=== PATIENT | female | born 1970 | race Caucasian/White ===

== ENCOUNTER 2018-10-07 06:19 | Outpatient (CLI) | payer OTHER ==
[~2018-10-07] VITALS: Ht 170.2 cm; Wt 78.9 kg
[~2018-10-07 06:19] MED LIST: DOXY100C2 PO; ESCI20TA2 PO; METH4TAB PO
[2018-10-07] MEDS ORDERED: DULO30CA3 PO (13:20)
[2018-10-07] MEDS ORDERED: NF-ESOM40C PO (13:20)
== END 2018-10-07 13:21 | disposition home or self-care (01) ==
LOC: PREOP 06:19
PROVIDERS: ATTEND Surgery
DX: Z01.818 Encounter for other preprocedural examination (principal)

== ENCOUNTER 2018-10-14 06:55 | Day surgery (SDC) | payer OTHER ==
[~2018-10-14] VITALS: Ht 170.2 cm; Wt 78.9 kg
[~2018-10-14 06:55] MED LIST changes: +DULO30CA3 PO; +NF-ESOM40C PO
--- OUTSIDE RECORDS SUMMARY | 2018-10-14 06:58 | XMS REPORT ---
Author Author Migration, Doctor Organization [facility] Address Unknown Phone Unavailable Care Team Providers Care Sugar House Supervisor Name Role Phone Migration, Doctor Unavailable Unavailable PROBLEMS Type Condition ICD9-CM Code [id number] Code Onset Dates Condition Status SNOMED Code Problem Gastroesophageal reflux disease, esophagitis presence not specified K21.9 Active 535621774 Problem Dysthymia F34.1 Active 18852206 Problem Hypercholesteremia E78.00 Active 46217456 Problem Tobacco abuse Z72.0 Active 516014340 ALLERGIES No Information ENCOUNTERS Encounter Location Date Diagnosis [facility] [id number] [place] [address]50- 7475 Sep, Gastroesophageal reflux disease, esophagitis presence not specified K21.9 [facility] [address] [address]- [address] Jul, [place] [address] [address] Jul, Viral upper respiratory tract infection J06.9 ; Vaginal discharge N89.8 ; Gastroesophageal reflux disease, esophagitis presence not specified K21.9 and Dysthymia F34.1 [facility] [id number] [place] [address] 81163- 7461 Jun, Essential hypertension I10 ; Chronic diarrhea K52.9 and Gastroesophageal reflux disease, esophagitis presence not specified K21.9 [facility] [id number] [place] [address] -[address]69 Apr, Acute bacterial conjunctivitis of right eye H10.31 and Bronchitis J40 [facility] [id number] [place] [address] 60080- 0745 Sep, Essential hypertension I10 [facility] [address] 8[address]- 3024 Jul, [place] [address] [address]12- 8290 04 Jul, 2017 Encounter for well woman exam with routine gynecological exam Z01.419 ; Screen for STD (sexually transmitted disease) Z11.3 ; Screening breast examination Z12.31 ; Tobacco abuse Z72.0 ; Tobacco abuse counseling Z71.6 ; Essential hypertension I10 and Missed period N92.6 [place] [address] 96[address]- [address]227 May, [facility] [address] [address] -[address]77 May, Encounter for immunization Z23 [place] [address] 00789- 6426 15 Mar, 2017 Encounter to establish care with new doctor Z76.89 ; Essential hypertension I10 ; Tobacco abuse Z72.0 and Tobacco abuse counseling Z71.6 [place] [address] 42900- 9519 Mar, [place] [address] 14669- 3117 Feb, Localized edema R60.0 ; Tinea pedis of both feet B35.3 and Hypertension, benign I10 [facility] [address] 72408 -4780 Sep, Bronchitis J40 [place] [address] 53173- 1448 Apr, Encounter for immunization Z23 [place] [address] 36522- 7301 07 Mar, 2016 Frequent urination R35.0 ; Hot flashes R23.2 ; Cough R05 and Tobacco dependence F17.200 [facility] [id number] [place] [id number] Feb, Dental examination Z01.20 [place] [address] 75558- 2546 November, Plant allergic contact dermatitis L23.7 [facility] [address] [id number] [id number] Jul, Encounter for dental examination Z01.20 and Dental caries K02.9 [facility] [address] [id number] [id number] May, Dental examination Z01.20 [facility] [address] [id number] [id number] Mar, Dental examination V72.2 [facility] [address] [id number][place] [id number] November, Dental examination V72.2 [facility] [address] [id number], [place] [address]- 2546 Oct, [facility] [address] [id number], [place] [address] 88[address] Oct, [facility] [address] [id number], [place] [address]- 2546 Apr, [facility] [address] [id number], [place] [address] Apr, [facility] [address], [place] [address] 25[address] Jan, [facility] [address] [id number], [place] [address] 6716 Jan, [facility] [address] [facility] [id number], [place] [address] 25[address] Feb, [facility] [address] [id number], [place] [address] 2546 Oct, [facility] [address] [facility] [id number], [place] [address]- 2546 Sep, [facility] [address] [facility] [id number], [place] [address]- 2546 Sep, [facility] [place] [facility] [address] [id number] [place] [address]- 2581 Sep, [facility] [place] [facility] [address] [id number] [place] [address]- 6071 Aug, [facility] [place] [facility] [address] [id number] [place] [address] 2546 Jul, [facility] [place] [facility] [address] [id number] [place] [address]- 6928 Jun, [facility] [place] [facility] [address] [id number] [place] [address]- 3747 Jun, [facility] [place] [facility] [address] [id number] [place] [address] Apr, [facility] [place] [facility] [address] [id number] [place] [address]- 5295 Apr, [facility] [place] [facility] [address] [id number] [place] [address]- 8393 Jan, [facility] [place] [facility] [address] [id number] [place] [address]- 0281 Dec, [facility] [place] [facility] [address] [id number] [place] [address]- 4287 Dec, [facility] [place] [facility] [address] [id number] [place] [address]- 5525 Dec, [facility] [place] [facility] [address] [id number] [place] [address]- 7763 Dec, [facility] [place] [facility] [address] [id number] [place] [address]- 5159 Dec, [facility] [place] [facility] [address] [id number] [place] [address]- 3820 Dec, [facility] [place] [facility] [address] [id number] [place] [address]- 4256 Dec, [facility] [place] [facility] [address] [id number] [place] [address]- 0079 Dec, [facility] [address] [id number] [place] [address]- 8631 Dec, [facility] [place] [facility] [address] [id number] [place] [address]- 3761 November, [facility] [address] [id number] [place] [address]- 9235 November, [facility] [place] [facility] [address] [id number] [place] [address]- 7664 November, [facility] [address] [id number] [place] [address]- 8642 November, [facility] [address] [id number] [place] [address]- 9860 November, [facility] [address] [id number] [place] [address]- 9093 November, [facility] [place] [facility] [address] [id number] [place] [address]- 5706 November, [facility] [place] [facility] [address] [id number] [place] [address]- 3986 November, [facility] [place] [facility] [address] [id number] [place] [address]- 2869 November, [facility] [place] [facility] [address] [id number] [place] [address]- 7980 November, [facility] [place] [facility] [address] [id number] [place] [address]- 2970 November, [facility] [place] [facility] [address] [id number] [place] [address]- 6748 Sep, [facility] [place] [facility] [address] [id number] [place] [address]- 0801 Sep, [facility] [place] [facility] [address] [id number] [place] [address]- 5016 Sep, [facility] [place] [facility] [address], [place] [address]- 99[address] Sep, [facility] [address]65100[place], [place] [address]- 9935 Aug, [facility] [address]65100[place], [place] [address]- 5380 Aug, [facility] [address]65[address], [place] [address]- 0881 Aug, [facility] [address] [place] [address] 26172- 9952 Aug, [facility] [address] [place] [address] 04504- 0751 Aug, [facility] [address] [place] [address] 29331- 2322 Aug, [facility] [address] [place] [address] 62399- 2744 Aug, [facility] [address]65[address], [place] [address]- 0298 May, [facility] [address], [place] [address]- 5287 May, [facility] [id number], [place] [address]- 5486 May, IMMUNIZATIONS No Known Immunizations SOCIAL HISTORY Never Assessed REASON FOR VISIT [facility] [place] PLAN OF CARE VITAL SIGNS MEDICATIONS Unknown Medications RESULTS No Results PROCEDURES No Known procedures INSTRUCTIONS MEDICATIONS ADMINISTERED No Known Medications MEDICAL (GENERAL) HISTORY Type Description Date Medical History Incomplete spontaneous without mention of complication Medical History Mucous polyp of cervix Medical History anxiety Medical History depression Medical History borderline personality disorder Surgical History [place] teeth removed Surgical History section Hospitalization History Child
--- OUTSIDE RECORDS SUMMARY | 2018-10-14 06:58 | XMS REPORT ---
Author Author Migration, Doctor Organization [facility] Address Unknown Phone Unavailable Care Team Providers Care Ammonia Box Operator Name Role Phone Migration, Doctor Unavailable Unavailable PROBLEMS Type Condition ICD9-CM Code PCW36-FH Code Onset Dates Condition Status SNOMED Code Problem Gastroesophageal reflux disease, esophagitis presence not specified K21.9 Active 618535145 Problem Dysthymia F34.1 Active 60565656 Problem Hypercholesteremia E78.00 Active 46879754 Problem Tobacco abuse Z72.0 Active 443603886 ALLERGIES No Information ENCOUNTERS Encounter Location Date Diagnosis [facility] [id number] [place] [address] 45876- 2510 Sep, Gastroesophageal reflux disease, esophagitis presence not specified K21.9 [facility] [address] [address]- 6545 Jul, [place] [address] 71720- 6253 Jul, Viral upper respiratory tract infection J06.9 ; Vaginal discharge N89.8 ; Gastroesophageal reflux disease, esophagitis presence not specified K21.9 and Dysthymia F34.1 [facility] [id number] [place] [address] 89532- 1128 Jun, Essential hypertension I10 ; Chronic diarrhea K52.9 and Gastroesophageal reflux disease, esophagitis presence not specified K21.9 [facility] [id number] [place] [address]287 -5419 Apr, Acute bacterial conjunctivitis of right eye H10.31 and Bronchitis J40 [facility] [id number] [place] [address] 05547- 3217 Sep, Essential hypertension I10 [facility] [address] 46073- 5938 Jul, [place] [address] 15949- 9075 04 Jul, 2017 Encounter for well woman exam with routine gynecological exam Z01.419 ; Screen for STD (sexually transmitted disease) Z11.3 ; Screening breast examination Z12.31 ; Tobacco abuse Z72.0 ; Tobacco abuse counseling Z71.6 ; Essential hypertension I10 and Missed period N92.6 [place] [address] 42231- 8992 May, [facility] [address] 69543 -9817 May, Encounter for immunization Z23 [place] [address] 84009- 7135 15 Mar, 2017 Encounter to establish care with new doctor Z76.89 ; Essential hypertension I10 ; Tobacco abuse Z72.0 and Tobacco abuse counseling Z71.6 [place] [address] 29605- 7072 Mar, [place] [address] 69266- 5211 Feb, Localized edema R60.0 ; Tinea pedis of both feet B35.3 and Hypertension, benign I10 [facility] [address] 77910 -7278 Sep, Bronchitis J40 [place] [address] 50961- 2702 Apr, Encounter for immunization Z23 [place] [address] 23545- 5347 07 Mar, 2016 Frequent urination R35.0 ; Hot flashes R23.2 ; Cough R05 and Tobacco dependence F17.200 [facility] [id number] [place] [address] [id number] Feb, Dental examination Z01.20 [place] [address] 80238- 2546 November, Plant allergic contact dermatitis L23.7 [facility] [address] [id number][place] [address] Jul, Encounter for dental examination Z01.20 and Dental caries K02.9 [facility] [address] [id number][place] [id number] May, Dental examination Z01.20 [facility] [address] [id number][place] [address] Mar, Dental examination V72.2 [facility] [address] [id number][place] [id number] November, Dental examination V72.2 [facility] [address] [id number], [place] [address]- 2546 Oct, [facility] [address] [id number], [place] [address]- 9486 Oct, [facility] [address] [id number], [place] [address]- 2546 Apr, [facility] [address] [id number], [place] [address]- 7176 Apr, [facility] [address]65100[place], [place] [address]- 2546 Jan, [facility] [address] [id number], [place] [address]- 4736 Jan, [facility] [address] [facility] [id number], [place] [address]- 2546 Feb, [facility] [address] [id number], [place] [address] 2546 Oct, [facility] [address] [facility] [id number], [place] [address]- 2546 Sep, [facility] [address] [facility] [id number], [place] [address]- 2546 Sep, [facility] [place] [facility] [address] [id number] [place] [address]- 7639 Sep, [facility] [place] [facility] [address] [id number] [place] [address]- 1186 Aug, [facility] [place] [facility] [address] [id number] [place] [address] 2546 Jul, [facility] [place] [facility] [address] [id number] [place] [address]- 1670 Jun, [facility] [place] [facility] [address] [id number] [place] [address]- 2703 Jun, [facility] [place] [facility] [address] [id number] [place] [address] Apr, [facility] [place] [facility] [address] [id number] [place] [address]- 1015 Apr, [facility] [place] [facility] [address] [id number] [place] [address]- 5944 Jan, [facility] [place] [facility] [address] [id number] [place] [address]- 1704 Dec, [facility] [place] [facility] [address] [id number] [place] [address]- 3270 Dec, [facility] [place] [facility] [address] [id number] [place] [address]- 2314 Dec, [facility] [place] [facility] [address] [id number] [place] [address]- 5628 Dec, [facility] [place] [facility] [address] [id number] [place] [address]- 6608 Dec, [facility] [place] [facility] [address] [id number] [place] [address]- 9673 Dec, [facility] [place] [facility] [address] [id number] [place] [address]- 1476 Dec, [facility] [place] [facility] [address] [id number] [place] [address]- 6863 Dec, [facility] [address] [id number] [place] [address]- 0396 Dec, [facility] [place] [facility] [address] [id number] [place] [address]- 7754 November, [facility] [address] [id number] [place] [address]- 2678 November, [facility] [place] [facility] [address] [id number] [place] [address]- 4827 November, [facility] [address] [id number] [place] [address]- 6232 November, [facility] [address] [id number] [place] [address]- 0934 November, [facility] [address] [id number] [place] [address]- 9524 November, [facility] [place] [facility] [address] [id number] [place] [address]- 6843 November, [facility] [place] [facility] [address] [id number] [place] [address]- 7656 November, [facility] [place] [facility] [address] [id number] [place] [address]- 3582 November, [facility] [place] [facility] [address] [id number] [place] [address]- 6645 November, [facility] [place] [facility] [address] [id number] [place] [address]- 1758 November, [facility] [place] [facility] [address] [id number] [place] [address]- 8154 Sep, [facility] [place] [facility] [address] [id number] [place] [address]- 5863 Sep, [facility] [place] [facility] [address] [id number] [place] [address]- 2745 Sep, [facility] [place] [facility] [address] [id number], [place] [address]- 2479 Sep, [facility] [address], [place] [address]- 1408 Aug, [facility] [address] [address] [address] Aug, [facility] [address], [place] [address]- 6046 Aug, [facility] [address]65[address], [place] [address]- 3400 Aug, [facility] [address] 6722 Aug, [facility] [address], [place] [address]- 6711 Aug, [facility] [address], [place] [address]- 7008 Aug, [facility] [address], [place] [address]- 1551 May, [facility] [address], [place] [address]- 4336 May, [facility] [address], [place] [address]- 6762 May, IMMUNIZATIONS No Known Immunizations SOCIAL HISTORY Never Assessed REASON FOR VISIT [facility] [place] VITAL SIGNS MEDICATIONS Medication Instructions Dosage Frequency Start Date End Date Duration Status ZyrTEC 10 mg 1 tablet by Oral route 1 time per day Apr, Active Flonase 50 mcg/actuation 1 sprays by Nasal route 2 times per day in each nostril Apr, Active Zithromax 250 mg take 2 tablets (500 mg) by oral route once daily for 1 day then 1 tablet (250 mg) by oral route once daily for 4 days Dec, Active PredniSONE 20 mg 2 tablet by Oral route 1 time per day for 5 day(s)voucher Jun, Active Cymbalta 30 mg 3 capsule by Oral route 1 time per day Jan, Active RESULTS No Results PROCEDURES No Known procedures INSTRUCTIONS MEDICATIONS ADMINISTERED No Known Medications MEDICAL (GENERAL) HISTORY Type Description Date Medical History Incomplete spontaneous without mention of complication Medical History Mucous polyp of cervix Medical History anxiety Medical History depression Medical History borderline personality disorder Surgical History [place] teeth removed Surgical History section Hospitalization History Child
--- OUTSIDE RECORDS SUMMARY | 2018-10-14 06:58 | XMS REPORT ---
Author Author Migration, Doctor Organization [facility] Address Unknown Phone Unavailable Care Team Providers Care Dinker Name Role Phone Migration, Doctor Unavailable Unavailable PROBLEMS Type Condition ICD9-CM Code UTP13-MZ Code Onset Dates Condition Status SNOMED Code Problem Gastroesophageal reflux disease, esophagitis presence not specified K21.9 Active 208251677 Problem Dysthymia F34.1 Active 87745239 Problem Hypercholesteremia E78.00 Active 11466698 Problem Tobacco abuse Z72.0 Active [id number] ALLERGIES No Information ENCOUNTERS Encounter Location Date Diagnosis [facility] [id number] [place] [address]18- 0622 Sep, Gastroesophageal reflux disease, esophagitis presence not specified K21.9 [facility] [address] [address]- [address] Jul, [place] [address] 28093- [address] Jul, Viral upper respiratory tract infection J06.9 ; Vaginal discharge N89.8 ; Gastroesophageal reflux disease, esophagitis presence not specified K21.[address] [facility] [id number] [place] [address] 05040- 8573 Jun, Essential hypertension I10 ; Chronic diarrhea K52.9 and Gastroesophageal reflux disease, esophagitis presence not specified K21.9 [facility] [id number] [place] [address] 8[address]21 -9797 Apr, Acute bacterial conjunctivitis of right eye H10.[address] [facility] [id number] [place] [address] 87044- 2337 Sep, Essential hypertension I10 [facility] [address] [address]- 2429 Jul, [place] [address] 02668- 8707 04 Jul, 2017 Encounter for well woman exam with routine gynecological exam Z01.419 ; Screen for STD (sexually transmitted disease) Z11.3 ; Screening breast examination Z12.31 ; Tobacco abuse Z72.0 ; Tobacco abuse counseling Z71.6 ; Essential hypertension I10 and Missed period N92.6 [place] [address] 6[address]- 0311 May, [facility] [address] [address]93 May, Encounter for immunization Z23 [place] [address] 11485- 7814 15 Mar, 2017 Encounter to establish care with new doctor Z76.89 ; Essential hypertension I10 ; Tobacco abuse Z72.0 and Tobacco abuse counseling Z71.6 [place] [address] 52851- 4486 Mar, [place] [address] 84793- 7918 Feb, Localized edema R60.0 ; Tinea pedis of both feet B35.3 and Hypertension, benign I10 [facility] [address] 00[address] -6994 Sep, Bronchitis J40 [place] [address] 08062- 9558 Apr, Encounter for immunization Z23 [place] [address] 89231- 6517 07 Mar, 2016 Frequent urination R35.0 ; Hot flashes R23.2 ; Cough R05 and Tobacco dependence F17.200 [facility] [id number] [place] [address] [id number] Feb, Dental examination Z01.20 [place] [address] 57440- 2546 November, Plant allergic contact dermatitis L23.7 [facility] [address] [id number] [id number] Jul, Encounter for dental examination Z01.20 and Dental caries K02.9 [facility] [address] [id number] [id number] May, Dental examination Z01.20 [facility] [address] [id number] [id number] Mar, Dental examination V72.2 [facility] [address] [id number] [id number] November, Dental examination V72.2 [facility] [address] [id number], [place] [address] Oct, [facility] [address] [id number] [address] Oct, [facility] [address] [id number] [address] 2546 Apr, [facility] [address] [id number] [address] 5666 Apr, [facility] [address], [place] [address] Jan, [facility] [address] [id number] [address] 4[address] Jan, [facility] [address] [facility] [id number], [place] [address]- 2546 Feb, [facility] [address] [id number], [place] [address] 2546 Oct, [facility] [address] [facility] [id number], [place] [address]- 2546 Sep, [facility] [address] [facility] [id number], [place] [address]- 2546 Sep, [facility] [place] [facility] [address] [id number] [place] [address]- 6753 Sep, [facility] [place] [facility] [address] [id number] [place] [address]- 1635 Aug, [facility] [place] [facility] [address] [id number] [place] [address] 2546 Jul, [facility] [place] [facility] [address] [id number] [place] [address]- 8373 Jun, [facility] [place] [facility] [address] [id number] [place] [address]- 6199 Jun, [facility] [place] [facility] [address] [id number] [place] [address] Apr, [facility] [place] [facility] [address] [id number] [place] [address]- 9490 Apr, [facility] [place] [facility] [address] [id number] [place] [address]- 9456 Jan, [facility] [place] [facility] [address] [id number] [place] [address]- 5031 Dec, [facility] [place] [facility] [address] [id number] [place] [address]- 2856 Dec, [facility] [place] [facility] [address] [id number] [place] [address]- 0996 Dec, [facility] [place] [facility] [address] [id number] [place] [address]- 3097 Dec, [facility] [place] [facility] [address] [id number] [place] [address]- 7540 Dec, [facility] [place] [facility] [address] [id number] [place] [address]- 6696 Dec, [facility] [place] [facility] [address] [id number] [place] [address]- 1886 Dec, [facility] [place] [facility] [address] [id number] [place] [address]- 8610 Dec, [facility] [address] [id number] [place] [address]- 8612 Dec, [facility] [place] [facility] [address] [id number] [place] [address]- 0464 November, [facility] [address] [id number] [place] [address]- 5785 November, [facility] [place] [facility] [address] [id number] [place] [address]- 1932 November, [facility] [address] [id number] [place] [address]- 8911 November, [facility] [address] [id number] [place] [address]- 5138 November, [facility] [address] [id number] [place] [address]- 0718 November, [facility] [place] [facility] [address] [id number] [place] [address]- 3451 November, [facility] [place] [facility] [address] [id number] [place] [address]- 5690 November, [facility] [place] [facility] [address] [id number] [place] [address]- 9109 November, [facility] [place] [facility] [address] [id number] [place] [address]- 4012 November, [facility] [place] [facility] [address] [id number] [place] [address]- 4455 November, [facility] [place] [facility] [address] [id number] [place] [address]- 1807 Sep, [facility] [place] [facility] [address] [id number] [place] [address]- 1103 Sep, [facility] [place] [facility] [address] [id number] [place] [address]- 2475 Sep, [facility] [place] [facility] [address], [place] [address]- [address] Sep, [facility] [address], [place] [address] 3763 Aug, [facility] [address] [address] 7[address] Aug, [facility] [address], [place] [address] Aug, [facility] [address] [place] [address] 19407- 1481 Aug, [facility] [address] [place] [address] 72431- [address]574 Aug, [facility] [id number] [place] [address] 98687- 1930 Aug, [facility] [address] [place] [address] 00143- 9084 Aug, [facility] [address] [address]503 May, [facility] [address], [place] [address] 6707 May, [facility] [address] [id number], [place] [address]- 4204 May, IMMUNIZATIONS No Known Immunizations SOCIAL HISTORY Never Assessed REASON FOR VISIT [facility] PLAN OF CARE VITAL SIGNS MEDICATIONS Unknown Medications RESULTS No Results PROCEDURES No Known procedures INSTRUCTIONS MEDICATIONS ADMINISTERED No Known Medications MEDICAL (GENERAL) HISTORY Type Description Date Medical History Incomplete spontaneous without mention of complication Medical History Mucous polyp of cervix Medical History anxiety Medical History depression Medical History borderline personality disorder Surgical History [place] teeth removed Surgical History section Hospitalization History Child
--- OUTSIDE RECORDS SUMMARY | 2018-10-14 06:59 | XMS REPORT ---
Author Author KARLA WYATT Organization [facility] Address [address] [place] [address] Care Team Providers Care Health Screener Name Role Phone ACOSTAWYATT Powell Unavailable PROBLEMS Type Condition ICD9-CM Code QEE98-FU Code Onset Dates Condition Status SNOMED Code Problem Missed period N92.6 Active 78712646 Problem Tobacco abuse counseling Z71.6 Active 647802531 Problem Hypercholesteremia E78.00 Active 97739079 Problem Tobacco abuse Z72.0 Active 918628482 Problem Essential hypertension I10 Active 88045498 ALLERGIES No Information ENCOUNTERS Encounter Location Date Diagnosis [facility] [address] [address]- [address] Sep, Essential hypertension I10 [facility] [id number] [place] [address] 49377- 3524 Jul, [facility] [address] [address]45- 7003 Jul, Encounter for well woman exam with routine gynecological exam Z01.419 ; Screen for STD (sexually transmitted disease) Z11.3 ; Screening breast examination Z12.31 ; Tobacco abuse Z72.0 ; Tobacco abuse counseling Z71.6 ; Essential hypertension I10 and Missed period N92.6 [facility] [id number] [place] [address] 91121- 5027 May, [facility] [id number] [place] [address]157 -6445 May, Encounter for immunization Z23 [facility] [id number] [place] [address] 39026- 3016 15 Mar, 2017 Encounter to establish care with new doctor Z76.89 ; Essential hypertension I10 ; Tobacco abuse Z72.0 and Tobacco abuse counseling Z71.6 [facility] [id number] [place] [address] 23682- 3490 Mar, [facility] [address] [address]8332- 0482 Feb, Localized edema R60.0 ; Tinea pedis of both feet B35.3 and Hypertension, benign I10 [facility] [address] 35[address] -9316 Sep, Bronchitis J40 [facility] [address] 20895- 4380 Apr, Encounter for immunization Z23 [place] [address] 86749- 5184 07 Mar, 2016 Frequent urination R35.0 ; Hot flashes R23.2 ; Cough R05 and Tobacco dependence F17.200 [facility] [address] [id number] Feb, Dental examination Z01.20 [facility] [id number] [place] [address] 42304- 6852 November, Plant allergic contact dermatitis L23.7 [facility] [address] [id number] Jul, Encounter for dental examination Z01.20 and Dental caries K02.9 [facility] [id number] [place] [address] [id number] May, Dental examination Z01.20 [facility] [id number] [place] [address] [id number] Mar, Dental examination V72.2 [facility] [address] [id number] November, Dental examination V72.2 [facility] [id number] [place] [address] 35666- 3775 Oct, [facility] [address] 93317- 4481 13 Oct, 2014 [facility] [address] [id number] [place] [address]- 5765 Apr, [facility] [place] [facility] [address] [id number] [place] [address]- 3164 17 Apr, 2014 [facility] [address] [id number] [place] [address]- 4506 14 Jan, 2014 [facility] [place] [facility] [address] [id number] [place] [address]- 4898 14 Jan, 2014 [facility] [address] [id number] [place] [address]- 0377 Feb, [facility] [place] [facility] [address] [id number] [place] [address]- 0769 Oct, [facility] [address] [id number] [place] [address]- 9682 Sep, [facility] [place] [facility] [address] [id number] [place] [address]- 7967 Sep, [facility] [address] [facility] [id number] [place] [address]- 0081 Sep, [facility] [place] [facility] [address] [facility] [id number] [place] [address]- 2805 Aug, [facility] [address] [id number] [place] [address]- 4122 Jul, [facility] [place] [facility] [address] [id number] [place] [address]- 4366 Jun, [facility] [place] [facility] [address] [id number] [place] 8810 Jun, [facility] [place] [facility] [address] [facility] [id number] [place] 7535 Apr, [facility] [place] [facility] [address] [facility] [id number] [place] 6472 Apr, [facility] [place] [facility] [address] [id number] [place] [address]- 5099 Jan, [facility] [place] [facility] [address] [id number] [place] [address]- 6290 Dec, [facility] [place] [facility] [address] [id number] [place] [address]- 3196 Dec, [facility] [place] [facility] [address] [id number] [place] [address]- 3632 Dec, [facility] [place] [facility] [address] [id number] [place] [address]- 6743 Dec, [facility] [place] [facility] [address] [id number] [place] [address]- 4419 Dec, [facility] [place] [facility] [address] [id number] [place] [address]- 1030 Dec, [facility] [place] [facility] [address] [id number] [place] [address]- 2712 Dec, [facility] [place] [facility] [address] [id number] [place] [address]- 9592 Dec, [facility] [place] [facility] [address] [id number] [place] [address]- 1732 Dec, [facility] [place] [facility] [address] [id number] [place] [address]- 1892 November, [facility] [place] [facility] [address] [id number] [place] [address]- 1330 November, [facility] [place] [facility] [address] [id number] [place] [address]- 7460 November, [facility] [place] [facility] [address] [id number] [place] [address]- 1260 November, [facility] [place] [facility] [address] [id number] [place] [address]- 3354 November, [facility] [place] [facility] [address] [id number] [place] [address]- 5459 November, [facility] [place] [facility] [address] [id number] [place] [address]- 5392 November, [facility] [place] [facility] [address] [id number] [place] [address]- 5296 November, [facility] [place] [facility] [address] [id number] [place] [address]- 9246 November, [facility] [place] [facility] [address] [id number] [place] [address]- 3707 November, [facility] [place] [facility] [address] [id number] [place] [address]- 6211 November, [facility] [place] [facility] [address] [id number] [place] [address]- 5547 Sep, [facility] [place] [facility] [address] [id number] [place] [address]- 1560 Sep, [facility] [place] [facility] [address] [id number] [place] [address]- 0756 Sep, [facility] [place] [facility] [address] [id number] [place] [address]- 0491 Sep, [facility] [place] [facility] [address] [id number] [place] [address]- 4117 Aug, [facility] [place] [facility] [address] [id number] [place] [address]- 0059 Aug, [facility] [place] [facility] [address] [id number] [place] [address]- 4203 Aug, [facility] [place] [facility] [address] [id number] [place] [address]- 3950 Aug, [facility] [place] [facility] [address] [id number] [place] [address]- 1626 13 Aug, 2011 [facility] [place] [facility] [address] [id number] [place] [address]- 2626 08 Aug, 2011 [facility] [place] [facility] [address] [facility] [id number] [place] [address]- 6846 08 Aug, 2011 [facility] [address] [facility] [id number] [place] [address]- 4658 May, [facility] [address] [facility] [id number] [place] [address]- 8471 May, [facility] [address] [facility] [id number] [place] 9[address] May, IMMUNIZATIONS No Known Immunizations SOCIAL HISTORY Never Assessed REASON FOR VISIT Repository Medication PLAN OF CARE VITAL SIGNS MEDICATIONS Medication Instructions Dosage Frequency Start Date End Date Duration Status Hydrochlorothiazide 25 MG Orally Once a day 1 tablet in the morning 24h 90 days Active RESULTS No Results PROCEDURES No Known procedures INSTRUCTIONS MEDICATIONS ADMINISTERED No Known Medications MEDICAL (GENERAL) HISTORY Type Description Date Medical History Incomplete spontaneous without mention of complication Medical History Mucous polyp of cervix Medical History anxiety Medical History depression Medical History borderline personality disorder Surgical History [place] teeth removed Surgical History section Hospitalization History Child
--- OUTSIDE RECORDS SUMMARY | 2018-10-14 06:59 | XMS REPORT ---
Author Author THOMAS JOHNSON [facility] Address [address] [place] [address] Care Team Providers Care Creamery Worker Name Role Phone THOMAS JOHNSON Unavailable PROBLEMS Type Condition ICD9-CM Code OOG63-IB Code Onset Dates Condition Status SNOMED Code Problem Gastroesophageal reflux disease, esophagitis presence not specified K21.9 Active 577593384 Problem Tobacco abuse Z72.0 Active 452711112 Problem Essential hypertension I10 Active 16647561 Problem Hypercholesteremia E78.00 Active 12416770 ALLERGIES No Known Allergies ENCOUNTERS Encounter Location Date Diagnosis [facility] [address] [address] Jun, Essential hypertension I10 ; Chronic diarrhea K52.9 and Gastroesophageal reflux disease, esophagitis presence not specified K21.9 [facility] [address] [address] Apr, Acute bacterial conjunctivitis of right eye H10.31 and Bronchitis J40 [facility] [id number] [place] [address] Sep, Essential hypertension I10 [facility] [id number] [place] [address] Jul, [facility] [id number] [place] [address]- 16[address] Jul, Encounter for well woman exam with routine gynecological exam Z01.419 ; Screen for STD (sexually transmitted disease) Z11.3 ; Screening breast examination Z12.31 ; Tobacco abuse Z72.0 ; Tobacco abuse counseling Z71.6 ; Essential hypertension I10 and Missed period N92.6 [facility] [id number] [place] [address] May, [facility] [address] [address] May, Encounter for immunization Z23 [facility] [address] [address] 15 Mar, 2017 Encounter to establish care with new doctor Z76.89 ; Essential hypertension I10 ; Tobacco abuse Z72.0 and Tobacco abuse counseling Z71.6 [place] [address] [address] Mar, [place] [address] [address] Feb, Localized edema R60.0 ; Tinea pedis of both feet B35.3 and Hypertension, benign I10 [facility] [address] [address] Sep, Bronchitis J40 [place] [address] [address] Apr, Encounter for immunization Z23 [place] [address] [address] 07 Mar, 2016 Frequent urination R35.0 ; Hot flashes R23.2 ; Cough R05 and Tobacco dependence F17.200 [facility] [address] [id number] Feb, Dental examination Z01.20 [facility] [address] [address] November, Plant allergic contact dermatitis L23.7 [facility] [address] [id number] Jul, Encounter for dental examination Z01.20 and Dental caries K02.9 [facility] [address] [id number] May, Dental examination Z01.20 [facility] [address] [place] [id number] Mar, Dental examination V72.2 [facility] [address] [id number] [place] [id number] November, Dental examination V72.2 [facility] [address] [id number] [place] [address] 14 Oct, 2014 [facility] [address] [id number] [place] [address]- 25[address] Oct, [facility] [address] [id number] [place] [address]- 25[address] Apr, [facility] [address] [id number] [place] [address] 25[address] Apr, [facility] [address] [id number] [place] [address]- 25[address] Jan, [facility] [address] [id number] [place] [address] 25[address] Jan, [facility] [address] [id number] [place] [address] Feb, [facility] [address] [id number] [place] [address]- 25[address] Oct, [facility] [address] [id number] [place] [address]- 25[address] Sep, [facility] [address] [id number] [place] [address]- 25[address] Sep, [facility] [address] [id number] [place] [address]- 25[address] Sep, [facility] [address] [id number] [place] [address]- 2546 Aug, [facility] [address] [id number] [place] [address]- 25[address] Jul, [facility] [address] [id number] [address] Jun, [facility] [place] [facility] [address] [id number] [place] [address] 56[address] Jun, [facility] [place] [facility] [address] [id number] [place] [address]- 66[address] Apr, [facility] [place] [facility] [address] [id number] [place] [address]- 2525 Apr, [facility] [place] [facility] [address] [id number] [place] [address]- 56[address] Jan, [facility] [place] [facility] [address] [id number] [place] [address]- 4[address] Dec, [facility] [place] [facility] [address] [id number] [place] [address]- 4369 Dec, [facility] [place] [facility] [address] [id number] [place] [address]- 399[address] Dec, [facility] [place] [facility] [address] [id number] [place] [address]- 1557 Dec, [facility] [place] [facility] [address] [id number] [place] [address]- 7527 Dec, [facility] [place] [facility] [address] [id number] [place] [address]- 265[address] Dec, [facility] [place] [facility] [address] [id number] [place] [address]- 2590 Dec, [facility] [place] [facility] [address] [id number] [address] Dec, [facility] [place] [facility] [address] [id number] [place] [address]- 5375 Dec, [facility] [place] [facility] [address] [id number] [place] [address]- 5844 November, [facility] [place] [facility] [address] [id number] [place] [address]- 9187 November, [facility] [place] [facility] [address] [id number] [place] [address]- 7147 November, [facility] [address] [id number] [place] [address]- 7290 November, [facility] [place] [facility] [address] [id number] [place] [address]- 0[address] November, [facility] [address] [id number] [place] [address]- 8586 November, [facility] [place] [facility] [address] [id number] [place] [address]- 2273 November, [facility] [address] [id number] [place] [address]- 2507 November, [facility] [address] [id number] [place] [address]- 9686 November, [facility] [address] [id number] [place] [address]- 2[address] November, [facility] [address] [id number] [place] [address]- [address] November, [facility] [address] [id number] [place] [address]- 70[address] Sep, [facility] [place] [facility] [address] [id number] [place] [address]- 5798 Sep, [facility] [place] [facility] [address] [id number] [place] [address]- 2647 Sep, [facility] [place] [facility] [address] [id number] [place] [address]- 1140 Sep, [facility] [place] [facility] [address] [id number] [place] [address]- 34[address] Aug, [facility] [place] [facility] [address] [id number] [place] [address]- 65[address] Aug, [facility] [place] [facility] [address] [id number] [place] [address]- 0856 Aug, [facility] [address] [facility] [id number] [address] Aug, [facility] [address] [id number] [address] Aug, [facility] [address] [id number] [address] Aug, [facility] [address]65100[place] [address] Aug, [facility] [address] [id number] [address] May, [facility] [address]65100[place] [address] May, [facility] [address] [id number] [address] 76[address] May, IMMUNIZATIONS No Known Immunizations SOCIAL HISTORY Never Assessed REASON FOR VISIT Establish Care/ check up/ wants labs- ZACK Nair PLAN OF CARE Activity Details Follow Up 4wk Reason:diarrhea/gerd Pending Test LIPID PANEL Pending Test CMP Pending Test CBC Pending Test TSH Pending Test A1C VITAL SIGNS Height 67 in 2018-06-11 Weight 178.2 lbs 2018-06-11 Temperature 97.9 degrees Fahrenheit 2018-06-11 Heart Rate 92 bpm 2018-06-11 Respiratory Rate 18 2018-06-11 BMI 27.91 kg/m2 2018-06-11 Blood pressure systolic 102 mmHg 2018-06-11 Blood pressure diastolic 58 mmHg 2018-06-11 MEDICATIONS Medication Instructions Dosage Frequency Start Date End Date Duration Status Cymbalta 60 MG Orally Twice a day 1 capsule 12h Jan, Active Esomeprazole Magnesium 40 mg Orally Once a day 1 capsule 24h Jun, 30 day(s) Active HydrOXYzine HCl 10 MG Orally twice daily as needed for anxiety 1 tablet Active ibuprofen 200 mg orally 2-3 times daily as needed 3 tablets Active RESULTS No Results PROCEDURES Procedure Date Ordered Result Body Site COMPREHEN METABOLIC PANEL Jun 11, 2018 LIPID PANEL Jun 11, 2018 ASSAY THYROID STIM HORMONE Jun 11, 2018 COMPLETE CBC W/AUTO DIFF WBC Jun 11, 2018 Hemoglobin Test Send Out 0 dollar Jun 11, 2018 INSTRUCTIONS MEDICATIONS ADMINISTERED No Known Medications MEDICAL (GENERAL) HISTORY Type Description Date Medical History Incomplete spontaneous without mention of complication Medical History Mucous polyp of cervix Medical History anxiety Medical History depression Medical History borderline personality disorder Surgical History [place] teeth removed Surgical History section Hospitalization History Child
--- OUTSIDE RECORDS SUMMARY | 2018-10-14 06:59 | XMS REPORT ---
Author Author Migration, Doctor Organization [facility] Address Unknown Phone Unavailable Care Team Providers Care Sql Manager Name Role Phone Migration, Doctor Unavailable Unavailable PROBLEMS Type Condition ICD9-CM Code VPY15-QG Code Onset Dates Condition Status SNOMED Code Problem Gastroesophageal reflux disease, esophagitis presence not specified K21.9 Active 771284593 Problem Dysthymia F34.1 Active 70368261 Problem Hypercholesteremia E78.00 Active 31470706 Problem Tobacco abuse Z72.0 Active 421083236 ALLERGIES No Information ENCOUNTERS Encounter Location Date Diagnosis [facility] [id number] [place] [address] Sep, Gastroesophageal reflux disease, esophagitis presence not specified K21.9 [facility] [address] [address] Jul, [place] [address] [address] Jul, Viral upper respiratory tract infection J06.9 ; Vaginal discharge N89.8 ; Gastroesophageal reflux disease, esophagitis presence not specified K21.9 and Dysthymia F34.1 [facility] [id number] [place] [address]- [address] Jun, Essential hypertension I10 ; Chronic diarrhea K52.9 and Gastroesophageal reflux disease, esophagitis presence not specified K21.9 [facility] [id number] [place] [address] Apr, Acute bacterial conjunctivitis of right eye H10.31 and Bronchitis J40 [facility] [id number] [place] [address]- 0942 Sep, Essential hypertension I10 [facility] [address] [address] Jul, [place] [address] [address]- [address] 04 Jul, 2017 Encounter for well woman exam with routine gynecological exam Z01.419 ; Screen for STD (sexually transmitted disease) Z11.3 ; Screening breast examination Z12.31 ; Tobacco abuse Z72.0 ; Tobacco abuse counseling Z71.6 ; Essential hypertension I10 and Missed period N92.6 [place] [address] [address]- [address] May, [facility] [address] [address] May, Encounter for immunization Z23 [place] [address] [address]- [address] 15 Mar, 2017 Encounter to establish care with new doctor Z76.89 ; Essential hypertension I10 ; Tobacco abuse Z72.0 and Tobacco abuse counseling Z71.6 [place] [address] [address]- [address] Mar, [place] [address] [address]61 Feb, Localized edema R60.0 ; Tinea pedis of both feet B35.3 and Hypertension, benign I10 [facility] [address] [address] Sep, Bronchitis J40 [place] [address] [address]- [address] Apr, Encounter for immunization Z23 [place] [address] [address]- [address] 07 Mar, 2016 Frequent urination R35.0 ; Hot flashes R23.2 ; Cough R05 and Tobacco dependence F17.200 [facility] [id number] [place] [id number] Feb, Dental examination Z01.20 [place] [address] [address]- [address] November, Plant allergic contact dermatitis L23.7 [facility] [address] [id number] [id number] Jul, Encounter for dental examination Z01.20 and Dental caries K02.9 [facility] [address] [id number][place] [id number] May, Dental examination Z01.20 [facility] [address] [id number][place] [id number] Mar, Dental examination V72.2 [facility] [address] [id number][place] [id number] November, Dental examination V72.2 [facility] [address] [id number], [place] [address]- 2546 Oct, [facility] [address] [id number], [place] [address]- 8466 Oct, [facility] [address] [id number], [place] [address]- 25[address] Apr, [facility] [address] [id number], [place] [address]- 7246 Apr, [facility] [address]65[place], [place] [address]- 2546 Jan, [facility] [address] [id number], [place] [address]- [address] Jan, [facility] [address] [facility] [id number] [address]- 2546 Feb, [facility] [address] [id number], [place] [address] 2546 Oct, [facility] [address] [facility] [id number], [place] [address]- 2546 Sep, [facility] [address] [facility] [id number], [place] [address]- 2546 Sep, [facility] [place] [facility] [address] [id number] [place] [address]- 3973 Sep, [facility] [place] [facility] [address] [id number] [place] [address]- 7370 Aug, [facility] [place] [facility] [address] [id number] [place] [address] 2546 Jul, [facility] [place] [facility] [address] [id number] [place] [address]- 7273 Jun, [facility] [place] [facility] [address] [id number] [place] [address]- 7988 Jun, [facility] [place] [facility] [address] [id number] [place] [address] Apr, [facility] [place] [facility] [address] [id number] [place] [address]- 6630 Apr, [facility] [place] [facility] [address] [id number] [place] [address]- 0045 Jan, [facility] [place] [facility] [address] [id number] [place] [address]- 9226 Dec, [facility] [place] [facility] [address] [id number] [place] [address]- 0294 Dec, [facility] [place] [facility] [address] [id number] [place] [address]- 6545 Dec, [facility] [place] [facility] [address] [id number] [place] [address]- 4892 Dec, [facility] [place] [facility] [address] [id number] [place] [address]- 0461 Dec, [facility] [place] [facility] [address] [id number] [place] [address]- 8075 Dec, [facility] [place] [facility] [address] [id number] [place] [address]- 1396 Dec, [facility] [place] [facility] [address] [id number] [place] [address]- 2533 Dec, [facility] [address] [id number] [place] [address]- 9017 Dec, [facility] [place] [facility] [address] [id number] [place] [address]- 2455 November, [facility] [address] [id number] [place] [address]- 1581 November, [facility] [place] [facility] [address] [id number] [place] [address]- 3759 November, [facility] [address] [id number] [place] [address]- 1739 November, [facility] [address] [id number] [place] [address]- 6025 November, [facility] [address] [id number] [place] [address]- 7550 November, [facility] [place] [facility] [address] [id number] [place] [address]- 3669 November, [facility] [place] [facility] [address] [id number] [place] [address]- 1584 November, [facility] [place] [facility] [address] [id number] [place] [address]- 5625 November, [facility] [place] [facility] [address] [id number] [place] [address]- 6161 November, [facility] [place] [facility] [address] [id number] [place] [address]- 0149 November, [facility] [place] [facility] [address] [id number] [place] [address]- 9144 Sep, [facility] [place] [facility] [address] [id number] [place] [address]- 1170 Sep, [facility] [place] [facility] [address] [id number] [place] [address]- 3438 Sep, [facility] [place] [facility] [address], [place] [address]- 7681 Sep, [facility] [address]65[address], [place] [address]- 459[address] Aug, [facility] [address]65[address], [place] [address]- 8529 Aug, [facility] [address]65[address], [place] [address]- 5807 Aug, [facility] [address] [place] [address]- 9718 Aug, [facility] [address] [place] [address]605- 3506 Aug, [facility] [address] [place] [address]- 8863 Aug, [facility] [address] [place] [address]- 6014 Aug, [facility] [address], [place] [address]- 9161 May, [facility] [address], [place] [address]- 3[address] May, [facility] [address] [id number], [place] [address]- 5501 May, IMMUNIZATIONS No Known Immunizations SOCIAL HISTORY Never Assessed REASON FOR VISIT [facility] PLAN OF CARE VITAL SIGNS MEDICATIONS Unknown Medications RESULTS No Results PROCEDURES No Known procedures INSTRUCTIONS MEDICATIONS ADMINISTERED No Known Medications MEDICAL (GENERAL) HISTORY Type Description Date Medical History Incomplete spontaneous without mention of complication Medical History Mucous polyp of cervix Medical History anxiety Medical History depression Medical History borderline personality disorder Surgical History [place] teeth removed Surgical History section Hospitalization History Child
--- OUTSIDE RECORDS SUMMARY | 2018-10-14 06:59 | XMS REPORT ---
Author RACHEL Chen Organization [employer] Address Unknown Phone Unavailable Care Team Providers Care Press Operator Meat Name Role Phone RACHEL ORTIZ CP Unavailable Allergies No Known Allergies Problems Problem Type Condition Code Onset Dates Condition Status Assessment Encounter for immunization Z23 Active Medications No Known Medications Procedures Procedure Coding System Code Date SINGLE IMMUNIZATION ADMIN CPT-4 86504 May 02, 2016 FLUARIX QUAD P-FREE 3 AND UP .50 2015 CPT-4 20495 May 02, 2016 Results No Known Results Immunizations Vaccine Administration Date FLUARIX QUAD P-FREE 3 AND UP .50 2015May 02, 2016 Summary Purpose [employer] Submission
--- OUTSIDE RECORDS SUMMARY | 2018-10-14 06:59 | XMS REPORT ---
Author Author GISSEL GUERRERO [facility] [employer] Address Unknown Phone Unavailable Care Team Providers Care Finance Accounting Internship Name Role Phone GISSEL GUERRERO CP Unavailable Allergies No Known Allergies Problems Problem Type Condition Code Onset Dates Condition Status Problem Unspecified breast screening V76.10 Active Problem Acute sinusitis, unspecified 461.9 Active Problem Nondependent tobacco use disorder 305.1 Active Problem Incomplete spontaneous without mention of complication 634.91 Active Problem Mucous polyp of cervix 622.7 Active Problem Unspecified hypertrophic and atrophic condition of skin 701.9 Active Problem Supervision of high-risk of elderly multigravida V23.82 Active Problem Threatened , unspecified as to episode of care 640.00 Active Problem examination or test, negative result V72.41 Active Problem examination or test, positive result V72.42 Active Problem Unspecified chronic bronchitis 491.9 Active Problem Acute upper respiratory infections of unspecified site 465.9 Active Problem Rash and other nonspecific skin eruption 782.1 Active Problem Procreative counseling and advice using natural family planning V26.41 Active Problem Counseling on substance use and abuse V65.42 Active Problem Screening for other and unspecified cardiovascular conditions V81.2 Active Problem Screening for malignant neoplasm of the cervix V76.2 Active Problem Allergic rhinitis, cause unspecified 477.9 Active Problem Headache 784.0 Active Problem Screening for thyroid disorder V77.0 Active Problem 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
--- OUTSIDE RECORDS SUMMARY | 2018-10-14 06:59 | XMS REPORT ---
Author Author PADMINI SIMPSON [facility] Address Unknown Care Team Providers Care Railroad Dining Car Steward/Stewardess Name Role Phone TATIANA PADMINI Unavailable PROBLEMS Type Condition ICD9-CM Code [id number] Code Onset Dates Condition Status SNOMED Code Assessment Dental examination Z01.20 Feb, Active 421234804 ALLERGIES Substance Reaction Event Type Date Status N.K.D.A. Unknown Non Drug Allergy Feb, Unknown SOCIAL HISTORY No smoking Hx information available PLAN OF CARE VITAL SIGNS Height 67 in 2016-03-07 Blood pressure systolic 113 mmHg 2016-03-07 Blood pressure diastolic 84 mmHg 2016-03-07 MEDICATIONS Medication Instructions Dosage Frequency Start Date End Date Duration Status BuSpar Active Cymbalta 60 MG Orally Twice a day 1 capsule 12h 14 Jan, 2014 Active Triamcinolone Acetonide 0.1 % Externally Twice a day 1 application to affected area 12h 17 Nov, 2015 Active RESULTS No Results PROCEDURES Procedure Date Ordered Related Diagnosis Body Site RESIN COMPOS - 3 SURFACES POSTERIOR Mar 07, 2016 IMMUNIZATIONS No Known Immunizations
--- OUTSIDE RECORDS SUMMARY | 2018-10-14 06:59 | XMS REPORT ---
Author Author GISSEL GUERRERO [facility] [place] eClinicalWorks Address Unknown Phone Unavailable Care Team Providers Care Geoduck Diver Name Role Phone GISSEL GUERRERO Unavailable Allergies, Adverse Reactions, Alerts Substance Reaction Event Type N.K.D.A. Info Not Available Non Drug Allergy Problems Problem Type Condition Code Onset Dates [...] to solvents 692.2 Active Assessment Dental examination V72.2 Active Problem Screening examination for venereal disease V74.5 Active Problem Other procreative management, counseling and advice V26.49 Active Medications Medication Code System Code Instructions Start Date End Date Status Dosage Cymbalta FORMERLY NAMED [facility] [address]-85 30 mg January 18, 2014 3 capsule by Oral route 1 time per day BuSpar [place] 0 not defined Lovell FORMERLY NAMED [facility] [address]-79 5-325 MG Orally every 6 hrs Mar 31, 2015Mar 1 tablet as needed Procedures Procedure Coding System Code Date INTRAORL-PERIAPICAL 1 FILM 29555 CPT-4 D0220 Mar 31, 2015 BITEWINGS - TWO FILMS CPT-4 D0272 Mar 31, 2015 LTD ORAL EVALUATION - PROBLEM FOCUS CPT-4 D0140 Mar 31, 2015 Vital Signs Date/Time: Mar 31, 2015 Blood Pressure Diastolic 67 mmHg Blood Pressure Systolic 115 mmHg Results No Known Results Summary Purpose eClinicalWorks Submission
--- OUTSIDE RECORDS SUMMARY | 2018-10-14 06:59 | XMS REPORT ---
Author Author GISSEL GUERRERO eClinicalWorks Address Unknown Phone Unavailable Care Team Providers Care Assembler Finger Buffs Name Role Phone GISSEL GUERRERO CP Unavailable Allergies, Adverse Reactions, Alerts Substance Reaction Event Type N.K.D.A. 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 Active Assessment Dental caries K02.9 Active Problem Other procreative management, counseling and advice V26.49 Active Assessment Encounter for dental examination Z01.20 Active Problem Unspecified breast screening V76.10 Active Problem Acute sinusitis, unspecified 461.9 Active Problem Nondependent tobacco use disorder 305.1 Active Problem Incomplete spontaneous without mention of complication 634.91 Active Problem Unspecified hypertrophic and atrophic condition of skin 701.9 Active Problem Mucous polyp of cervix 622.7 Active Problem Supervision of high-risk of elderly multigravida V23.82 Active Problem examination or test, negative result V72.41 Active Problem Threatened , unspecified as to episode of care 640.00 Active Problem examination or test, positive result [...] Screening for thyroid disorder V77.0 Active Problem Screening examination for venereal disease V74.5 Active Medications Medication Code System Code Instructions Start Date End Date Status Dosage Cymbalta [facility] [address]-06 30 mg January 18, 2014 3 capsule by Oral route 1 time per day [place] [facility] [address]-60 5-325 MG Orally every 6 hrs Aug 04, 2015 Aug 10, 2015 1 tablet as needed BuSpar ND 0 not defined Procedures Procedure Coding System Code Date SURG REMOVAL ERUPTED TOOTH CPT-4 D7210 Aug 04, 2015 INTRAORL-PERIAPICAL 1 FILM 26447 CPT-4 D0220 Aug 04, 2015 Vital Signs Date/Time: Aug 04, 2015 Blood Pressure Diastolic 76 mmHg Blood Pressure Systolic 116 mmHg Results No Known Results Summary Purpose eClinicalWorks Submission
--- OUTSIDE RECORDS SUMMARY | 2018-10-14 07:00 | XMS REPORT ---
Author Author KARLA WYATT Organization [facility] [place] Address [address] [place] [address] Care Team Providers Care Bell Tier Name Role Phone ACOSTAWYATT Powell Unavailable PROBLEMS Type Condition ICD9-CM Code IFX59-CQ Code Onset Dates Condition Status SNOMED Code Problem Missed period N92.6 Active 34093440 Problem Tobacco abuse counseling Z71.6 Active 041143026 Problem Hypercholesteremia E78.00 Active 31784039 Problem Tobacco abuse Z72.0 Active 414320125 Problem Essential hypertension I10 Active 13332368 ALLERGIES No Information ENCOUNTERS Encounter Location Date Diagnosis [facility] [place] [address] [address] Sep, Essential hypertension I10 [facility] [place] [id number] [place] [address] Jul, [facility] [place] [address] [address] 04 Jul, 2017 Encounter for well woman exam with routine gynecological exam Z01.419 ; Screen for STD (sexually transmitted disease) Z11.3 ; Screening breast examination Z12.31 ; Tobacco abuse Z72.0 ; Tobacco abuse counseling Z71.6 ; Essential hypertension I10 and Missed period N92.6 [facility] [place] [id number] [place] [address] May, [facility] [address] [address] May, Encounter for immunization Z23 [facility] [place] [id number] [place] [address] 15 Mar, 2017 Encounter to establish care with new doctor Z76.89 ; Essential hypertension I10 ; Tobacco abuse Z72.0 and Tobacco abuse counseling Z71.6 [facility] [place] [id number] [place] [address]- [address] Mar, [facility] [place] [address] [address] Feb, Localized edema R60.0 ; Tinea pedis of both feet B35.3 and Hypertension, benign I10 [facility] [address] [address] Sep, Bronchitis J40 [facility] [place] [address] [address] Apr, Encounter for immunization Z23 [place] [address] [address] 07 Mar, 2016 Frequent urination R35.0 ; Hot flashes R23.2 ; Cough R05 and Tobacco dependence F17.200 [facility] [address] [id number] Feb, Dental examination Z01.20 [facility] [place] [id number] [place] [address] November, Plant allergic contact dermatitis L23.7 [facility] [address] [id number] Jul, Encounter for dental examination Z01.20 and Dental caries K02.9 [facility] [id number] [place] [id number] May, Dental examination Z01.20 [facility] [id number] [place] [id number] Mar, Dental examination V72.2 [facility] [address] [id number] November, Dental examination V72.2 [facility] [place] [id number] [place] [address] Oct, [facility] [place] [address] [address] 13 Oct, 2014 [facility] [address] [id number] [place] [address] Apr, [facility] [place] [facility] [address] [id number] [place] [address] 5227 17 Apr, 2014 [facility] [address] [id number] [place] [address] 14 Jan, 2014 [facility] [place] [facility] [address] [id number] [place] [address]- 9893 14 Jan, 2014 [facility] [address] [id number] [place] [address]- 0963 Feb, [facility] [place] [facility] [address] [id number] [place] [address]- 2119 Oct, [facility] [address] [id number] [place] [address]- 5990 Sep, [facility] [place] [facility] [address] [id number] [place] [address]- 1231 Sep, [facility] [address] [facility] [id number] [place] [address]- 2880 Sep, [facility] [place] [facility] [address] [facility] [id number] [place] [address]- 7113 Aug, [facility] [address] [id number] [place] [address]- 2470 Jul, [facility] [place] [facility] [address] [id number] [place] [address]- 6596 Jun, [facility] [place] [facility] [address] [id number] [place] [address] Jun, [facility] [place] [facility] [address] [facility] [id number] [place] [address] Apr, [facility] [place] [facility] [address] [facility] [id number] [place] [address] Apr, [facility] [place] [facility] [address] [id number] [place] [address]- 1844 Jan, [facility] [place] [facility] [address] [id number] [place] [address]- 0029 Dec, [facility] [place] [facility] [address] [id number] [place] [address]- 6036 Dec, [facility] [place] [facility] [address] [id number] [place] [address]- 6643 Dec, [facility] [place] [facility] [address] [id number] [place] [address]- 6437 Dec, [facility] [place] [facility] [address] [id number] [place] [address]- 7177 Dec, [facility] [place] [facility] [address] [id number] [place] [address]- 1719 Dec, [facility] [place] [facility] [address] [id number] [place] [address]- 8960 Dec, [facility] [place] [facility] [address] [id number] [place] [address]- 7572 Dec, [facility] [place] [facility] [address] [id number] [place] [address]- 4595 Dec, [facility] [place] [facility] [address] [id number] [place] [address]- 7622 November, [facility] [place] [facility] [address] [id number] [place] [address]- 4266 November, [facility] [place] [facility] [address] [id number] [place] [address]- 6635 November, [facility] [place] [facility] [address] [id number] [place] [address]- 2961 November, [facility] [place] [facility] [address] [id number] [place] [address]- 0651 November, [facility] [place] [facility] [address] [id number] [place] [address]- 8893 November, [facility] [place] [facility] [address] [id number] [place] [address]- 4619 November, [facility] [place] [facility] [address] [id number] [place] [address]- 6466 November, [facility] [place] [facility] [address] [id number] [place] [address]- 9076 November, [facility] [place] [facility] [address] [id number] [place] [address]- 0529 November, [facility] [place] [facility] [address] [id number] [place] [address]- 2281 November, [facility] [place] [facility] [address] [id number] [place] [address]- 1572 Sep, [facility] [place] [facility] [address] [id number] [place] [address]- 8187 Sep, [facility] [place] [facility] [address] [id number] [place] [address]- 7021 Sep, [facility] [place] [facility] [address] [id number] [place] [address]- 6454 Sep, [facility] [place] [facility] [address] [id number] [place] [address]- 0400 Aug, [facility] [place] [facility] [address] [id number] [place] [address]- 3070 Aug, [facility] [place] [facility] [address] [id number] [place] [address]- 9400 Aug, [facility] [place] [facility] [address] [id number] [place] [address]- 4270 Aug, [facility] [place] [facility] [address] [id number] [place] [address]- 1616 13 Aug, 2011 [facility] [place] [facility] [address] [id number] [place] [address]- 4896 08 Aug, 2011 [facility] [place] [facility] [address] [facility] [id number] [place] [address]- 9136 08 Aug, 2011 [facility] [place] [address] [facility] [id number], [place] [address] May, [facility] [address] [facility] [id number], [place] [address]- [address]107 May, [facility] [place] [address] [facility] [id number], [place] [address]- 6[address] May, IMMUNIZATIONS No Known Immunizations SOCIAL HISTORY Never Assessed REASON FOR VISIT Refill request PLAN OF CARE VITAL SIGNS MEDICATIONS Medication Instructions Dosage Frequency Start Date End Date Duration Status Hydrochlorothiazide 25 MG Orally Once a day 1 tablet in the morning 24h 30 Active RESULTS No Results PROCEDURES No Known procedures INSTRUCTIONS MEDICATIONS ADMINISTERED No Known Medications MEDICAL (GENERAL) HISTORY Type Description Date Medical History Incomplete spontaneous without mention of complication Medical History Mucous polyp of cervix Medical History anxiety Medical History depression Medical History borderline personality disorder Surgical History [place] teeth removed Surgical History section Hospitalization History Child
--- OUTSIDE RECORDS SUMMARY | 2018-10-14 07:00 | XMS REPORT ---
Author Author KARLA WYATT Organization [facility] Address [address] [place] [address] Care Team Providers Care Fbi Profiler Name Role Phone ACOSTAWYATT Powell Unavailable PROBLEMS Type Condition ICD9-CM Code IWI22-SE Code Onset Dates Condition Status SNOMED Code Problem Missed period N92.6 Active 59996366 Problem Tobacco abuse counseling Z71.6 Active 636799175 Problem Hypercholesteremia E78.00 Active 14675326 Problem Tobacco abuse Z72.0 Active 081980709 Problem Essential hypertension I10 Active 26600831 ALLERGIES No Known Allergies ENCOUNTERS Encounter Location Date Diagnosis [facility] [address] [address] 30 Sep, 2017 Essential hypertension I10 [facility] [id number] [place] [address]- [address] Jul, [facility] [address] [address] Jul, Encounter for well woman exam with routine gynecological exam Z01.419 ; Screen for STD (sexually transmitted disease) Z11.3 ; Screening breast examination Z12.31 ; Tobacco abuse Z72.0 ; Tobacco abuse counseling Z71.6 ; Essential hypertension I10 and Missed period N92.6 [facility] [id number] [place] [address]- [address] May, [facility] [id number] [place] [address] May, Encounter for immunization Z23 [facility] [id number] [place] [address]16[address]- 0020 15 Mar, 2017 Encounter to establish care with new doctor Z76.89 ; Essential hypertension I10 ; Tobacco abuse Z72.0 and Tobacco abuse counseling Z71.6 [facility] [id number] [place] [address]- 8887 Mar, [facility] [address] [address] Feb, Localized edema R60.0 ; Tinea pedis of both feet B35.3 and Hypertension, benign I10 [facility] [address] [address] Sep, Bronchitis J40 [facility] [address] [address]- [address] Apr, Encounter for immunization Z23 [place] [address] [address] 07 Mar, 2016 Frequent urination R35.0 ; Hot flashes R23.2 ; Cough R05 and Tobacco dependence F17.200 [facility] [address] [id number] Feb, Dental examination Z01.20 [facility] [address] [address]- [address] November, Plant allergic contact dermatitis L23.7 [facility] [address] [id number] Jul, Encounter for dental examination Z01.20 and Dental caries K02.9 [facility] [address] [id number] May, Dental examination Z01.20 [facility] [id number] [place] [address] [id number] Mar, Dental examination V72.2 [facility] [address] [id number] November, Dental examination V72.2 [facility] [address] [address]- [address] Oct, [facility] [address] [address]- [address]08 13 Oct, 2014 [facility] [address] [id number] [place] [address]- 7253 17 Apr, 2014 [facility] [place] [facility] [address] [id number] [place] [address]- 5764 17 Apr, 2014 [facility] [address] [facility] [id number] [place] [address]- 9551 14 Jan, 2014 [facility] [place] [facility] [address] [id number] [place] [address]- 8299 14 Jan, 2014 [facility] [address] [id number] [place] [address]- 6524 Feb, [facility] [place] [facility] [address] [facility] [id number] [place] [address]- 6349 Oct, [facility] [address] [facility] [id number] [place] [address]- 6871 Sep, [facility] [place] [facility] [address] [facility] [id number] [place] [address]- 5285 Sep, [facility] [address] [facility] [id number] [place] [address]- 7270 Sep, [facility] [place] [facility] [address] [facility] [id number] [place] [address]- 2190 Aug, [facility] [address] [facility] [id number] [place] [address]- 7698 Jul, [facility] [place] [facility] [address] [id number] [place] [address]- 7709 Jun, [facility] [place] [facility] [address] [id number] [place] [address]- 9103 Jun, [facility] [place] [facility] [address] [facility] [id number] [place] [address]- 4606 Apr, [facility] [place] [facility] [address] [facility] [id number] [place] [address]- 3080 Apr, [facility] [place] [facility] [address] [id number] [place] [address]- 3236 Jan, [facility] [place] [facility] [address] [id number] [place] [address]- 6837 Dec, [facility] [place] [facility] [address] [id number] [place] [address]- 4836 Dec, [facility] [place] [facility] [address] [id number] [place] [address]- 1750 Dec, [facility] [place] [facility] [address] [id number] [place] [address]- 5546 Dec, [facility] [place] [facility] [address] [id number] [place] [address]- 0222 Dec, [facility] [place] [facility] [address] [id number] [place] [address]- 0018 Dec, [facility] [place] [facility] [address] [id number] [place] [address]- 2797 Dec, [facility] [place] [facility] [address] [id number] [place] [address]- 6826 Dec, [facility] [place] [facility] [address] [id number] [place] [address]- 9453 Dec, [facility] [place] [facility] [address] [id number] [place] [address]- 5030 November, [facility] [place] [facility] [address] [id number] [place] [address]- 1449 November, [facility] [place] [facility] [address] [id number] [place] [address]- 7316 November, [facility] [place] [facility] [address] [id number] [place] [address]- 9912 November, [facility] [place] [facility] [address] [id number] [place] [address]- 3320 November, [facility] [place] [facility] [address] [id number] [place] [address]- 0260 November, [facility] [place] [facility] [address] [id number] [place] [address]- 9127 November, [facility] [place] [facility] [address] [id number] [place] [address]- 8546 November, [facility] [place] [facility] [address] [facility] [id number] [place] [address]- 3776 November, [facility] [place] [facility] [address] [id number] [place] [address]- 1709 November, [facility] [place] [facility] [address] [id number] [place] [address]- 0786 November, [facility] [place] [facility] [address] [id number] [place] [address]- 2216 Sep, [facility] [place] [facility] [address] [facility] [id number] [place] [address]- 4557 Sep, [facility] [place] [facility] [address] [id number] [place] [address]- 7978 Sep, [facility] [place] [facility] [address] [facility] [id number] [place] [address]- 3853 Sep, [facility] [place] [facility] [address] [facility] [id number] [place] [address]- 7239 Aug, [facility] [place] [facility] [address] [facility] [id number] [place] [address]- 1269 24 Aug, 2011 [facility] [place] [facility] [address] [id number] [place] [address]- 8716 Aug, [facility] [place] [facility] [address] [id number] [place] [address]- 4806 Aug, [facility] [place] [facility] [address] [facility] [id number] [place] [address]- 8636 13 Aug, 2011 [facility] [place] [facility] [address] [facility] [id number] [place] [address]- 7056 08 Aug, 2011 [facility] [place] [facility] [address] [facility] [id number] [place] 08 Aug, 2011 [facility] [address] [facility] [id number], [place] [address]- 1357 May, [facility] [address] [facility] [id number], [place] [address]- 2261 May, [facility] [address] [facility] [id number], [place] [address]- 4575 May, IMMUNIZATIONS No Known Immunizations SOCIAL HISTORY Never Assessed REASON FOR VISIT Annual physical (female)-tjanssenMA, -wt gain 11lbs questioned . PLAN OF CARE Activity Details Follow Up 3 Months Reason:CHM VITAL SIGNS Height 67 in 2017-07-11 Weight 211.7 lbs 2017-07-11 Temperature 98.1 degrees Fahrenheit 2017-07-11 Heart Rate 70 bpm 2017-07-11 Respiratory Rate 20 2017-07-11 BMI 33.15 kg/m2 2017-07-11 Blood pressure systolic 112 mmHg 2017-07-11 Blood pressure diastolic 78 mmHg 2017-07-11 MEDICATIONS Medication Instructions Dosage Frequency Start Date End Date Duration Status Hydrochlorothiazide 25 MG Orally Once a day 1 tablet in the morning 24h 90 days Active BusPIRone HCl 10 MG Orally Twice a day 1 tablet 12h Active Rexulti 2 MG Orally Once a day 1 tablet 24h Active Cymbalta 60 MG Orally Twice a day 1 capsule 12h Jan, Active HydrOXYzine HCl 50 MG Orally at bedtime 1 tablet Active Glucosamine Chondroitin Triple - Orally Once a day 2 tablets 24h Active RESULTS No Results PROCEDURES Procedure Date Ordered Result Body Site VENIPUNCT, ROUTINE* Jul 11, 2017 URINE TEST Jul 11, 2017 Hemoglobin Test Send Out 0 dollar Jul 11, 2017 CULTURE, BACTERIA, OTHER Jul 11, 2017 Bacterial Vaginosis In House Jul 11, 2017 CHORIONIC GONADOTROPIN TEST Jul 11, 2017 SPECIMEN HANDLING Jul 11, 2017 LIPID PANEL Jul 11, 2017 TRICHOMONAS ASSAY W/OPTIC Jul 11, 2017 No Charge Jul 11, 2017 INSTRUCTIONS MEDICATIONS ADMINISTERED No Known Medications MEDICAL (GENERAL) HISTORY Type Description Date Medical History Incomplete spontaneous without mention of complication Medical History Mucous polyp of cervix Medical History anxiety Medical History depression Medical History borderline personality disorder Surgical History [place] teeth removed Surgical History section Hospitalization History Child
--- OUTSIDE RECORDS SUMMARY | 2018-10-14 07:00 | XMS REPORT ---
Author Author WYATT ACOSTA Organization [facility] Address [address] [place] [address] Care Team Providers Care Spring Crater Name Role Phone ACOSTAMOHINDER PowellELE Unavailable PROBLEMS Type Condition ICD9-CM Code HNO18-TN Code Onset Dates Condition Status SNOMED Code Problem Missed period N92.6 Active 70498805 Problem Tobacco abuse counseling Z71.6 Active 750241441 Problem Hypercholesteremia E78.00 Active 08929511 Problem Tobacco abuse Z72.0 Active 978758046 Problem Essential hypertension I10 Active 58151162 ALLERGIES No Known Allergies ENCOUNTERS Encounter Location Date Diagnosis [facility] [address] [address] November, [facility] [id number] [place] [address]- [address]143 Sep, Essential hypertension I10 [facility] [address] [address] Jul, [facility] [id number] [place] [address]- [address]287 Jul, Encounter for well woman exam with routine gynecological exam Z01.419 ; Screen for STD (sexually transmitted disease) Z11.3 ; Screening breast examination Z12.31 ; Tobacco abuse Z72.0 ; Tobacco abuse counseling Z71.6 ; Essential hypertension I10 and Missed period N92.6 [facility] [address] [address] May, [facility] [id number] [place] [address]13 May, Encounter for immunization Z23 [facility] [address] [address] 15 Mar, 2017 Encounter to establish care with new doctor Z76.89 ; Essential hypertension I10 ; Tobacco abuse Z72.0 and Tobacco abuse counseling Z71.6 [facility] [address] [address]- 47[address] 13 Mar, 2017 [facility] [id number] [place] [address]- 7031 Feb, Localized edema R60.0 ; Tinea pedis of both feet B35.3 and Hypertension, benign I10 [facility] [id number] [place] [address] Sep, Bronchitis J40 [facility] [address] [address]- [address] Apr, Encounter for immunization Z23 [place] [address] [address]- [address] 07 Mar, 2016 Frequent urination R35.0 ; Hot flashes R23.2 ; Cough R05 and Tobacco dependence F17.200 [facility] [address] [id number] Feb, Dental examination Z01.20 [place] [id number] [place] [address]48- 8446 November, Plant allergic contact dermatitis L23.7 [facility] [id number] [place] [address] [id number] Jul, Encounter for dental examination Z01.20 and Dental caries K02.9 [facility] [id number] [place] [id number] May, Dental examination Z01.20 [facility] [address] [id number] Mar, Dental examination V72.2 [facility] [address] [id number] November, Dental examination V72.2 [place] [address] [address]- [address] 14 Oct, 2014 [facility] [address] [id number] [place] [address] 4906 13 Oct, 2014 [facility] [address] [id number] [place] [address]- 8101 Apr, [facility] [address] [id number] [place] [address]- 8236 Apr, [facility] [address] [id number] [place] [address]- 7056 14 Jan, 2014 [facility] [address] [id number] [place] [address]- 8133 Jan, [facility] [address] [id number] [place] [address]- 1796 Feb, [facility] [address] [id number] [place] [address]- 2963 Oct, [facility] [address] [id number] [place] [address]- 9632 Sep, [facility] [address] [id number] [place] [address]- 2068 Sep, [facility] [address] [facility] [id number] [place] [address]- 2780 Sep, [facility] [address] [id number] [place] [address]- 7634 Aug, [facility] [place] [facility] [address] [id number] [place] [address]- 8827 Jul, [facility] [place] [facility] [address] [id number] [place] [address]- 2013 Jun, [facility] [place] [facility] [address] [id number] [place] [address]- 3197 Jun, [facility] [address] [facility] [id number] [place] [address]- 2577 Apr, [facility] [place] [facility] [address] [id number] [place] [address]- 5678 Apr, [facility] [place] [facility] [address] [id number] [place] [address]- 1973 Jan, [facility] [place] [facility] [address] [id number] [place] [address]- 5223 Dec, [facility] [place] [facility] [address] [id number] [place] [address]- 6595 Dec, [facility] [place] [facility] [address] [id number] [place] [address]- 8652 Dec, [facility] [place] [facility] [address] [id number] [place] [address]- 1567 Dec, [facility] [place] [facility] [address] [id number] [place] [address]- 2794 Dec, [facility] [place] [facility] [address] [id number] [place] [address]- 5334 Dec, [facility] [place] [facility] [address] [id number] [place] [address]- 9942 Dec, [facility] [place] [facility] [address] [id number] [place] [address]- 3945 Dec, [facility] [place] [facility] [address] [id number] [place] [address]- 1230 Dec, [facility] [place] [facility] [address] [id number] [place] [address]- 1937 November, [facility] [place] [facility] [address] [id number] [place] [address]- 3221 November, [facility] [place] [facility] [address] [id number] [place] [address]- 9320 November, [facility] [place] [facility] [address] [id number] [place] [address]- 0099 November, [facility] [place] [facility] [address] [id number] [place] [address]- 6347 November, [facility] [place] [facility] [address] [id number] [place] [address]- 7852 November, [facility] [place] [facility] [address] [id number] [place] [address]- 5116 November, [facility] [place] [facility] [address] [id number] [place] [address]- 7846 November, [facility] [place] [facility] [address] [id number] [place] [address]- 7680 November, [facility] [place] [facility] [address] [id number] [place] [address]- 5098 November, [facility] [place] [facility] [address] [id number] [place] [address]- 1264 November, [facility] [place] [facility] [address] [id number] [place] [address]- 5758 Sep, [facility] [place] [facility] [address] [id number] [place] [address]- 9967 Sep, [facility] [place] [facility] [address] [id number] [place] [address]- 6951 Sep, [facility] [place] [facility] [address] [id number] [place] [address]- 1554 Sep, [facility] [place] [facility] [address] [id number] [place] [address]- 2936 Aug, [facility] [place] [facility] [address] [id number] [place] [address]- 1705 Aug, [facility] [place] [facility] [address] [id number] [place] [address]- 6636 Aug, [facility] [place] [facility] [address] [id number] [place] [address]- 4591 Aug, [facility] [place] [facility] [address] [id number] [place] [address]- 0666 Aug, [facility] [place] [facility] [address] [facility] [id number] [place] [address]- 2546 Aug, [facility] [address] [facility] [id number], [place] [address]- 3436 Aug, [facility] [address] [facility] [id number], [place] [address]- 0066 May, [facility] [address] [facility] [id number], [place] [address]- 2546 May, [facility] [address] [facility] [id number], [place] [address]- 3226 May, IMMUNIZATIONS No Known Immunizations SOCIAL HISTORY Never Assessed REASON FOR VISIT [facility] Updated--ADaviedRN PLAN OF CARE VITAL SIGNS MEDICATIONS Medication Instructions Dosage Frequency Start Date End Date Duration Status Cymbalta 60 MG Orally Twice a day 1 capsule 12h Jan, Active BusPIRone HCl 10 MG Orally Twice a day 1 tablet 12h Active Rexulti 1 MG Orally Once a day 1 tablet 24h Active HydrOXYzine HCl 50 MG Orally at bedtime 1 tablet Active Hydrochlorothiazide 25 MG Orally Once a day, voucher 1 tablet in the morning Feb, Active Glucosamine Chondroitin Triple - Orally Once a day 2 tablets 24h Active RESULTS No Results PROCEDURES No Known procedures INSTRUCTIONS MEDICATIONS ADMINISTERED No Known Medications MEDICAL (GENERAL) HISTORY Type Description Date Medical History Incomplete spontaneous without mention of complication Medical History Mucous polyp of cervix Medical History anxiety Medical History depression Medical History borderline personality disorder Surgical History [place] teeth removed Surgical History section Hospitalization History Child
--- OUTSIDE RECORDS SUMMARY | 2018-10-14 07:00 | XMS REPORT ---
Author Author KARLA WYATT Organization [facility] [place] [facility] Address [address] [place] [address] Care Team Providers Care Appeals Assistant Name Role Phone ACOSTAWYATT Powell Unavailable PROBLEMS Type Condition ICD9-CM Code WNP28-MB Code Onset Dates Condition Status SNOMED Code Problem Missed period N92.6 Active 15134107 Problem Tobacco abuse counseling Z71.6 Active 516825735 Problem Hypercholesteremia E78.00 Active 56113758 Problem Tobacco abuse Z72.0 Active 812591552 Problem Essential hypertension I10 Active 96345845 ALLERGIES No Information ENCOUNTERS Encounter Location Date Diagnosis [facility] [place] [facility] [address] [address] 30 Sep, 2017 Essential hypertension I10 [facility] [place] [facility] [id number] [place] [address]- [address]69 Jul, [facility] [place] [facility] [address] [address]- [address] 04 Jul, 2017 Encounter for well woman exam with routine gynecological exam Z01.419 ; Screen for STD (sexually transmitted disease) Z11.3 ; Screening breast examination Z12.31 ; Tobacco abuse Z72.0 ; Tobacco abuse counseling Z71.6 ; Essential hypertension I10 and Missed period N92.6 [facility] [place] [facility] [id number] [place] [address]- [address]85 May, [facility] [address] [address] May, Encounter for immunization Z23 [facility] [place] [facility] [id number] [place] [address]- 1657 15 Mar, 2017 Encounter to establish care with new doctor Z76.89 ; Essential hypertension I10 ; Tobacco abuse Z72.0 and Tobacco abuse counseling Z71.6 [facility] [place] [facility] [id number] [place] [address]- 8478 Mar, [facility] [place] [facility] [address] [address]- [address] Feb, Localized edema R60.0 ; Tinea pedis of both feet B35.3 and Hypertension, benign I10 [facility] [address] [address] Sep, Bronchitis J40 [facility] [place] [facility] [address] [address]- 8[address] Apr, Encounter for immunization Z23 [place] [address] [address]- [address] 07 Mar, 2016 Frequent urination R35.0 ; Hot flashes R23.2 ; Cough R05 and Tobacco dependence F17.200 [facility] [address] [id number] Feb, Dental examination Z01.20 [facility] [place] [facility] [id number] [place] [address]- 1516 November, Plant allergic contact dermatitis L23.7 [facility] [address] [id number] Jul, Encounter for dental examination Z01.20 and Dental caries K02.9 [facility] [id number] [place] [address] [id number] May, Dental examination Z01.20 [facility] [id number] [place] [address] [id number] Mar, Dental examination V72.2 [facility] [address] [id number] November, Dental examination V72.2 [facility] [place] [facility] [id number] [place] [address] 66789- 7995 Oct, [facility] [place] [facility] [address] [address]- [address] 13 Oct, 2014 [facility] [address] [id number] [place] [address]- 2350 Apr, [facility] [place] [facility] [address] [id number] [place] [address]- 0724 17 Apr, 2014 [facility] [address] [id number] [place] [address]- 9474 14 Jan, 2014 [facility] [place] [facility] [address] [id number] [place] [address]- 9784 14 Jan, 2014 [facility] [address] [id number] [place] [address]- 6458 Feb, [facility] [place] [facility] [address] [id number] [place] [address]- 0316 Oct, [facility] [address] [id number] [place] [address]- 2630 Sep, [facility] [place] [facility] [address] [id number] [place] [address]- 2003 Sep, [facility] [address] [facility] [id number] [place] [address]- 1942 Sep, [facility] [place] [facility] [address] [facility] [id number] [place] [address]- 7698 Aug, [facility] [address] [id number] [place] [address]- 8571 Jul, [facility] [place] [facility] [address] [id number] [place] [address]- 9759 Jun, [facility] [place] [facility] [address] [id number] [place] [address] Jun, [facility] [place] [facility] [address] [facility] [id number] [place] [address] Apr, [facility] [place] [facility] [address] [facility] [id number] [place] [address] Apr, [facility] [place] [facility] [address] [id number] [place] [address]- 5452 Jan, [facility] [place] [facility] [address] [id number] [place] [address]- 2829 Dec, [facility] [place] [facility] [address] [id number] [place] [address]- 6216 Dec, [facility] [place] [facility] [address] [id number] [place] [address]- 9217 Dec, [facility] [place] [facility] [address] [id number] [place] [address]- 6759 Dec, [facility] [place] [facility] [address] [id number] [place] [address]- 2777 Dec, [facility] [place] [facility] [address] [id number] [place] [address]- 1576 Dec, [facility] [place] [facility] [address] [id number] [place] [address]- 9924 Dec, [facility] [place] [facility] [address] [id number] [place] [address]- 4219 Dec, [facility] [place] [facility] [address] [id number] [place] [address]- 3350 Dec, [facility] [place] [facility] [address] [id number] [place] [address]- 2522 November, [facility] [place] [facility] [address] [id number] [place] [address]- 9474 November, [facility] [place] [facility] [address] [id number] [place] [address]- 1171 November, [facility] [place] [facility] [address] [id number] [place] [address]- 9800 November, [facility] [place] [facility] [address] [id number] [place] [address]- 7394 November, [facility] [place] [facility] [address] [id number] [place] [address]- 2553 November, [facility] [place] [facility] [address] [id number] [place] [address]- 9773 November, [facility] [place] [facility] [address] [id number] [place] [address]- 5016 November, [facility] [place] [facility] [address] [id number] [place] [address]- 9676 November, [facility] [place] [facility] [address] [id number] [place] [address]- 8771 November, [facility] [place] [facility] [address] [id number] [place] [address]- 6095 November, [facility] [place] [facility] [address] [id number] [place] [address]- 1502 Sep, [facility] [place] [facility] [address] [id number] [place] [address]- 5446 Sep, [facility] [place] [facility] [address] [id number] [place] [address]- 8771 Sep, [facility] [place] [facility] [address] [id number] [place] [address]- 6903 Sep, [facility] [place] [facility] [address] [id number] [place] [address]- 5867 Aug, [facility] [place] [facility] [address] [id number] [place] [address]- 5611 Aug, [facility] [place] [facility] [address] [id number] [place] [address]- 3990 Aug, [facility] [place] [facility] [address] [id number] [place] [address]- 5253 Aug, [facility] [place] [facility] [address] [id number] [place] [address]- 3016 13 Aug, 2011 [facility] [place] [facility] [address] [id number] [place] [address]- 4836 08 Aug, 2011 [facility] [place] [facility] [address] [facility] [id number] [place] [address]- 5708 08 Aug, 2011 [facility] [place] [facility] [address] [facility] [id number] [address]- 3329 May, [facility] [place] [facility] [address] [facility] [id number] [address]- 3674 May, [facility] [place] [facility] [address] [facility] [id number] [address]- 3994 May, IMMUNIZATIONS No Known Immunizations SOCIAL HISTORY Never Assessed REASON FOR VISIT Requesting note PLAN OF CARE VITAL SIGNS MEDICATIONS Unknown Medications RESULTS No Results PROCEDURES No Known procedures INSTRUCTIONS MEDICATIONS ADMINISTERED No Known Medications MEDICAL (GENERAL) HISTORY Type Description Date Medical History Incomplete spontaneous without mention of complication Medical History Mucous polyp of cervix Medical History anxiety Medical History depression Medical History borderline personality disorder Surgical History [place] teeth removed Surgical History section Hospitalization History Child
--- OUTSIDE RECORDS SUMMARY | 2018-10-14 07:00 | XMS REPORT ---
Author Author BRADLEY RAUSCH Organization [facility] Address [address] [place] [address] Care Team Providers Care Strategy Analyst Name Role Phone BRADLEY RAUSCH Unavailable PROBLEMS Type Condition ICD9-CM Code [id number] Code Onset Dates Condition Status SNOMED Code Assessment Frequent urination R35.0 Mar, Active 491853164 Assessment Hot flashes R23.2 Mar, Active 083535824 Assessment Cough R05 Mar, Active 97615534 Assessment Tobacco dependence F17.200 Mar, Active 50197371 ALLERGIES Substance Reaction Event Type Date Status N.K.D.A. Unknown Non Drug Allergy Mar, Unknown SOCIAL HISTORY No smoking Hx information available PLAN OF CARE VITAL SIGNS Height 67 in 2016-03-14 Weight 192.7 lbs 2016-03-14 Heart Rate 92 bpm 2016-03-14 Respiratory Rate 18 2016-03-14 BMI 30.18 kg/m2 2016-03-14 Blood pressure systolic 143 mmHg 2016-03-14 Blood pressure diastolic 82 mmHg 2016-03-14 MEDICATIONS Medication Instructions Dosage Frequency Start Date End Date Duration Status BuSpar Active Cymbalta 60 MG Orally Twice a day 1 capsule 12h Jan, Active Cipro 500 MG Orally Twice a day 1 tablet 12h Mar, Mar, 03 days Active Tessalon Perles 200 mg Orally every 8 hours, PRN cough as directed Mar Active HydrOXYzine HCl Active RESULTS Name Result Date Reference Range UA LONG DIP (IN HOUSE) 2016-03-14 Lot # [id number] Exp date Clarity clear Color yellow Odor none GLU negative EILEEN negative KET Trace SG 1.015 BLO negative pH 6.5 Protein negative URO 0.2 NIT negative RANDEE negative Lot # Exp date PROCEDURES Procedure Date Ordered Related Diagnosis Body Site URINALYSIS, AUTO, W/O SCOPE Mar 14, 2016 Office Visit, Est Pt., Level 3 Mar 14, 2016 IMMUNIZATIONS No Known Immunizations
--- OUTSIDE RECORDS SUMMARY | 2018-10-14 07:01 | XMS REPORT ---
Author Author WYATT ACOSTA Organization [facility] Address [address] [place] [address] Care Team Providers Care Telephone Sales Representative Name Role Phone ACOSTAMOHINDER PowellELE Unavailable PROBLEMS Type Condition ICD9-CM Code ZII17-WE Code Onset Dates Condition Status SNOMED Code Problem Missed period N92.6 Active 38409388 Problem Tobacco abuse counseling Z71.6 Active 663834305 Problem Hypercholesteremia E78.00 Active 12803876 Problem Tobacco abuse Z72.0 Active 989179828 Problem Essential hypertension I10 Active 21075831 ALLERGIES No Known Allergies ENCOUNTERS Encounter Location Date Diagnosis [facility] [address] [address] November, [facility] [address] [id number] [place] [address] Sep, Essential hypertension I10 [facility] [address] [address] Jul, [facility] [id number] [place] [address] Jul, Encounter for well woman exam with routine gynecological exam Z01.419 ; Screen for STD (sexually transmitted disease) Z11.3 ; Screening breast examination Z12.31 ; Tobacco abuse Z72.0 ; Tobacco abuse counseling Z71.6 ; Essential hypertension I10 and Missed period N92.6 [facility] [address] [address] May, [facility] [id number] [place] [address] May, Encounter for immunization Z23 [facility] [address] [address] 15 Mar, 2017 Encounter to establish care with new doctor Z76.89 ; Essential hypertension I10 ; Tobacco abuse Z72.0 and Tobacco abuse counseling Z71.6 [facility] [address] [address] 13 Mar, 2017 [facility] [id number] [place] [address] Feb, Localized edema R60.0 ; Tinea pedis of both feet B35.3 and Hypertension, benign I10 [facility] [id number] [place] [address] Sep, Bronchitis J40 [facility] [address] [address] Apr, Encounter for immunization Z23 [place] [address] [address] 07 Mar, 2016 Frequent urination R35.0 ; Hot flashes R23.2 ; Cough R05 and Tobacco dependence F17.200 [facility] [address] [id number] Feb, Dental examination Z01.20 [place] [id number] [place] [address] November, Plant allergic contact dermatitis L23.7 [facility] [id number] [place] [id number] Jul, Encounter for dental examination Z01.20 and Dental caries K02.9 [facility] [id number] [place] [id number] May, Dental examination Z01.20 [facility] [address] [id number] Mar, Dental examination V72.2 [facility] [address] [id number] November, Dental examination V72.2 [place] [address] [address] 14 Oct, 2014 [facility] [address] [id number] [place] [address] 13 Oct, 2014 [facility] [address] [id number] [place] [address] Apr, [facility] [address] [id number] [place] [address] Apr, [facility] [address] [id number] [place] [address] 14 Jan, 2014 [facility] [address] [id number] [place] [address] Jan, [facility] [address] [id number] [place] [address] Feb, [facility] [address] [id number] [place] [address] Oct, [facility] [address] [id number] [place] [address] Sep, [facility] [address] [id number] [place] [address] Sep, [facility] [address] [facility] [id number] [place] [address] Sep, [facility] [address] [id number] [place] [address] Aug, [facility] [place] [facility] [address] [id number] [place] [address] Jul, [facility] [place] [facility] [address] [id number] [place] [address] 9[address] Jun, [facility] [place] [facility] [address] [id number] [place] [address]- [address] Jun, [facility] [address] [facility] [id number] [place] [address] 70[address] Apr, [facility] [place] [facility] [address] [id number] [place] [address]- 3[address] Apr, [facility] [place] [facility] [address] [id number] [place] [address] 288[address] Jan, [facility] [place] [facility] [address] [id number] [place] [address] Dec, [facility] [place] [facility] [address] [id number] [place] [address]- [address] Dec, [facility] [place] [facility] [address] [id number] [place] [address] Dec, [facility] [place] [facility] [address] [id number] [place] [address]- [address] Dec, [facility] [place] [facility] [address] [id number] [place] [address]- 7[address] Dec, [facility] [place] [facility] [address] [id number] [place] [address]- 0[address] Dec, [facility] [place] [facility] [address] [id number] [place] [address]- 5[address] Dec, [facility] [place] [facility] [address] [id number] [place] [address]- [address] Dec, [facility] [place] [facility] [address] [id number] [place] [address]- 4[address] Dec, [facility] [place] [facility] [address] [id number] [place] [address]- [address] November, [facility] [place] [facility] [address] [id number] [place] [address]- [address] November, [facility] [place] [facility] [address] [id number] [place] [address]- [address] November, [facility] [place] [facility] [address] [id number] [place] [address]- [address] November, [facility] [place] [facility] [address] [id number] [place] [address]- [address] November, [facility] [place] [facility] [address] [id number] [place] [address]- [address] November, [facility] [place] [facility] [address] [id number] [place] [address]- [address] November, [facility] [place] [facility] [address] [id number] [place] [address] November, [facility] [place] [facility] [address] [id number] [place] [address]- 7[address] November, [facility] [place] [facility] [address] [id number] [place] [address]- [address] November, [facility] [place] [facility] [address] [id number] [place] [address]- [address] November, [facility] [place] [facility] [address] [id number] [place] [address]- [address] Sep, [facility] [place] [facility] [address] [id number] [place] [address]- 47[address] Sep, [facility] [place] [facility] [address] [id number] [place] [address]- [address] Sep, [facility] [place] [facility] [address] [id number] [place] [address]- 4[address] Sep, [facility] [place] [facility] [address] [id number] [place] [address]- [address] Aug, [facility] [place] [facility] [address] [id number] [place] [address]- 9[address] Aug, [facility] [place] [facility] [address] [id number] [place] [address]- 3[address] Aug, [facility] [place] [facility] [address] [id number] [place] [address]- 75[address] Aug, [facility] [place] [facility] [address] [id number] [place] [address]- [address] Aug, [facility] [place] [facility] [address] [facility] [id number] [place] [address] Aug, [facility] [address] [facility] [id number], [place] [address] Aug, [facility] [address] [facility] [id number], [place] [address] May, [facility] [address] [facility] [id number], [place] [address] May, [facility] [address] [facility] [id number], [place] [address] May, IMMUNIZATIONS No Known Immunizations SOCIAL HISTORY Never Assessed REASON FOR VISIT Establish Care --neida bernal PLAN OF CARE Activity Details Follow Up 4 Weeks Reason:needs [employer] VITAL SIGNS Height 67 in 2017-03-22 Weight 199.7 lbs 2017-03-22 Temperature 97.5 degrees Fahrenheit 2017-03-22 BMI 31.27 kg/m2 2017-03-22 Blood pressure systolic 136 mmHg 2017-03-22 Blood pressure diastolic 84 mmHg 2017-03-22 MEDICATIONS Medication Instructions Dosage Frequency Start Date End Date Duration Status Cymbalta 60 MG Orally Twice a day 1 capsule 12h Jan, Active BusPIRone HCl 10 MG Orally Twice a day 1 tablet 12h Active HydrOXYzine HCl 50 MG Orally at bedtime 1 tablet Active Rexulti 1 MG Orally Once a day 1 tablet 24h Active Hydrochlorothiazide 25 MG Orally Once a [...] Medical History borderline personality disorder Surgical History Justice teeth removed Surgical History section Hospitalization History Child
--- OUTSIDE RECORDS SUMMARY | 2018-10-14 07:01 | XMS REPORT | Continuity of Care Document ---
Author Organization Unknown Address Unknown Allergies There is no data. Medications There is no data. Problems Date Dx Coded Attending Type Code Diagnosis Diagnosed By 04/11/2011 244.0 HYPOTHYROIDISM , POSTSURGICAL 04/11/2011 300.02 AN GEN ANXIETY 04/11/2011 311 DEPRESSIVE DISORDER NOS 04/11/2011 244.0 HYPOTHYROIDISM , POSTSURGICAL 04/11/2011 300.02 AN GEN ANXIETY 04/11/2011 311 DEPRESSIVE DISORDER NOS 04/11/2011 HENRY DO DELORIS K 244.0 HYPOTHYROIDISM, POSTSURGICAL 04/11/2011 HENRY DO, DELORIS K 300.02 AN GEN ANXIETY 04/11/2011 HENRY DO, DELORIS K 311 DEPRESSIVE DISORDER NOS 04/11/2011 HENRY DO DELORIS K 244.0 HYPOTHYROIDISM, POSTSURGICAL 04/11/2011 HENRY DO, DELORIS K 300.02 AN GEN ANXIETY 04/11/2011 HENRY DO, DELORIS K 311 DEPRESSIVE DISORDER NOS 04/11/2011 HENRY DO, DELORIS K 244.0 HYPOTHYROIDISM, POSTSURGICAL 04/11/2011 HENRY DO, DELORIS K 300.02 AN GEN ANXIETY 04/11/2011 HENRY DO, DELORIS K 311 DEPRESSIVE DISORDER NOS 04/11/2011 RAUSCH CUSTOMER COMPLAINT SERVICE SUPERVISOR, BRADLEY R 244.0 HYPOTHYROIDISM, POSTSURGICAL 04/11/2011 RAUSCH CUSTOMER COMPLAINT SERVICE SUPERVISOR, BRADLEY R 300.02 AN GEN ANXIETY 04/11/2011 SHALOM CUSTOMER COMPLAINT SERVICE SUPERVISORBAILEEBRADLEY R 311 DEPRESSIVE DISORDER NOS 04/11/2011 MAYITO CUSTOMER COMPLAINT SERVICE SUPERVISOR, CHAUNCEY A 244.0 HYPOTHYROIDISM, POSTSURGICAL 04/11/2011 MAYITO CUSTOMER COMPLAINT SERVICE SUPERVISOR, CHAUNCEY A 300.02 AN GEN ANXIETY 04/11/2011 MAYITO CUSTOMER COMPLAINT SERVICE SUPERVISOR, CHAUNCEY A 311 DEPRESSIVE DISORDER NOS 05/18/2011 558.9 GASTROENTERITIS NONINFECTIOUS 05/18/2011 558.9 GASTROENTERITIS NONINFECTIOUS 05/18/2011 HENRY DO, DELORIS K 558.9 GASTROENTERITIS NONINFECTIOUS 05/18/2011 HENRY DO DELORIS K 558.9 GASTROENTERITIS NONINFECTIOUS 05/18/2011 HENRY DO, DELORIS K 558.9 GASTROENTERITIS NONINFECTIOUS 05/18/2011 BRADLEY RAUSCH APRN R 558.9 GASTROENTERITIS NONINFECTIOUS 05/18/2011 CHAUNCEY EDMOND APRN A 558.9 GASTROENTERITIS NONINFECTIOUS 08/15/2011 782.1 RASH 08/15/2011 782.1 RASH 08/15/2011 DELORIS HENRY DO 782.1 RASH 08/15/2011 DELORIS HENRY DO 782.1 RASH 08/15/2011 DELORIS HENRY DO 782.1 RASH 08/15/2011 BRADLEY RAUSCH APRN R 782.1 RASH 08/15/2011 CHAUNCEY EDMOND APRN A 782.1 RASH 08/29/2011 V26.41 FERTILITY COUNSELING 08/29/2011 V65.42 COUNSELING - SMOKING CESSATION 08/29/2011 V74.5 STD SCREEN 08/29/2011 V76.2 CERVICAL CANCER SCREENING (PAP SMEAR) 08/29/2011 V77.0 THYROID DISORDER SCREENING 08/29/2011 V81.2 CARDIOVASCULAR DISORDER SCREENING, UNSPEC 08/29/2011 V26.41 FERTILITY COUNSELING 08/29/2011 V65.42 COUNSELING - SMOKING CESSATION 08/29/2011 V74.5 STD SCREEN 08/29/2011 V76.2 CERVICAL CANCER SCREENING (PAP SMEAR) 08/29/2011 V77.0 THYROID DISORDER SCREENING 08/29/2011 V81.2 CARDIOVASCULAR DISORDER SCREENING, UNSPEC 08/29/2011 DELORIS HENRY DO V26.41 FERTILITY COUNSELING 08/29/2011 DELORIS HENRY DO V65.42 COUNSELING - SMOKING CESSATION 08/29/2011 DELORIS HENRY DO V74.5 STD SCREEN 08/29/2011 DELORIS HENRY DO V76.2 CERVICAL CANCER SCREENING (PAP SMEAR) 08/29/2011 DELORIS HENRY DO V77.0 THYROID DISORDER SCREENING 08/29/2011 DELORIS HENRY DO V81.2 CARDIOVASCULAR DISORDER SCREENING, UNSPEC 08/29/2011 DELORIS HENRY DO V26.41 FERTILITY COUNSELING 08/29/2011 DELORIS HENRY DO V65.42 COUNSELING - SMOKING CESSATION 08/29/2011 DELORIS HENRY DO V74.5 STD SCREEN 08/29/2011 DELORIS HENRY DO V76.2 CERVICAL CANCER SCREENING (PAP SMEAR) 08/29/2011 DELORIS HENRY DO K V77.0 THYROID DISORDER SCREENING 08/29/2011 DELORIS HENRY DO K V81.2 CARDIOVASCULAR DISORDER SCREENING, UNSPEC 08/29/2011 DELORIS HENRY DO V26.41 FERTILITY COUNSELING 08/29/2011 DELORIS HENRY DO V65.42 COUNSELING - SMOKING CESSATION 08/29/2011 DELORIS HENRY DO K V74.5 STD SCREEN 08/29/2011 DELORIS HENRY DO K V76.2 CERVICAL CANCER SCREENING (PAP SMEAR) 08/29/2011 DELORIS HENRY DO K V77.0 THYROID DISORDER SCREENING 08/29/2011 DELORIS HENRY DO K V81.2 CARDIOVASCULAR DISORDER SCREENING, UNSPEC 08/29/2011 BRADLEY RAUSCH APRN V26.41 FERTILITY COUNSELING 08/29/2011 BRADLEY RAUSCH APRN V65.42 COUNSELING - SMOKING CESSATION 08/29/2011 BRADLEY RAUSCH APRN V74.5 STD SCREEN 08/29/2011 BRADLEY RAUSCH APRN V76.2 CERVICAL CANCER SCREENING (PAP SMEAR) 08/29/2011 BRADLEY RAUSCH APRN V77.0 THYROID DISORDER SCREENING 08/29/2011 BRADLEY RAUSCH APRN V81.2 CARDIOVASCULAR DISORDER SCREENING, UNSPEC 08/29/2011 CHAUNCEY EDMOND APRN V26.41 FERTILITY COUNSELING 08/29/2011 CHAUNCEY EDMOND APRN V65.42 COUNSELING - SMOKING CESSATION 08/29/2011 CHAUNCEY EDMOND APRN V74.5 STD SCREEN 08/29/2011 CHAUNCEY EDMOND APRN V76.2 CERVICAL CANCER SCREENING (PAP SMEAR) 08/29/2011 CHAUNCEY EDMOND APRN V77.0 THYROID DISORDER SCREENING 08/29/2011 CHAUNCEY EDMOND APRN V81.2 CARDIOVASCULAR DISORDER SCREENING, UNSPEC 09/27/2011 622.7 CERVICAL POLYPS 09/27/2011 622.7 CERVICAL POLYPS 09/27/2011 DELORIS HENRY DO 622.7 CERVICAL POLYPS 09/27/2011 DELORIS HENRY DO 622.7 CERVICAL POLYPS 09/27/2011 DELORIS HENRY DO K 622.7 CERVICAL POLYPS 09/27/2011 BRADLEY RAUSCH APRN 622.7 CERVICAL POLYPS 09/27/2011 CHAUNCEY EDMOND APRN 622.7 CERVICAL POLYPS 11/13/2011 V72.42 TEST POSITIVE RESULT 11/13/2011 V72.42 TEST POSITIVE RESULT 11/13/2011 DELORIS HENRY DO V72.42 TEST POSITIVE RESULT 11/13/2011 DELORIS HENRY DO V72.42 TEST POSITIVE RESULT 11/13/2011 DELORIS HENRY DO V72.42 TEST POSITIVE RESULT 11/13/2011 BRADLEY RAUSCH APRN V72.42 TEST POSITIVE RESULT 11/13/2011 CHAUNCEY EDMOND APRN V72.42 TEST POSITIVE RESULT 11/28/2011 V23.82 SUPERVISION OF HIGH-RISK WITH ELDERLY MULTIGRAVIDA 11/28/2011 V23.82 SUPERVISION OF HIGH-RISK WITH ELDERLY MULTIGRAVIDA 11/28/2011 DELORIS HENRY DO V23.82 SUPERVISION OF HIGH-RISK WITH ELDERLY MULTIGRAVIDA 11/28/2011 DELORIS HENRY DO V23.82 SUPERVISION OF HIGH-RISK WITH ELDERLY MULTIGRAVIDA 11/28/2011 DELORIS HENRY DO V23.82 SUPERVISION OF HIGH-RISK WITH ELDERLY MULTIGRAVIDA 11/28/2011 BRADLEY RAUSCH APRN V23.82 SUPERVISION OF HIGH-RISK WITH ELDERLY MULTIGRAVIDA 11/28/2011 CHAUNCEY EDMOND APRN V23.82 SUPERVISION OF HIGH-RISK WITH ELDERLY MULTIGRAVIDA 12/04/2011 640.00 THREATENED 12/04/2011 640.00 THREATENED 12/04/2011 DELORIS HENRY DO 640.00 THREATENED 12/04/2011 DELORIS HENRY DO 640.00 THREATENED 12/04/2011 DELORIS HENRY DO 640.00 THREATENED 12/04/2011 BRADLEY RAUSCH APRN 640.00 THREATENED 12/04/2011 CHAUNCEY EDMOND APRN 640.00 THREATENED 12/10/2011 634.91 INCOMPLETE (SAB) 12/10/2011 634.91 INCOMPLETE (SAB) 12/10/2011 DELORIS HENRY DO 634.91 INCOMPLETE (SAB) 12/10/2011 DELORIS HENRY DO 634.91 INCOMPLETE (SAB) 12/10/2011 HENRY DO, DELORIS K 634.91 INCOMPLETE (SAB) 12/10/2011 BRADLEY RAUSCH APRN 634.91 INCOMPLETE (SAB) 12/10/2011 CHAUNCEY EDMOND APRN A 634.91 INCOMPLETE (SAB) 12/17/2011 461.9 SINUSITIS ACUTE 12/17/2011 461.9 SINUSITIS ACUTE 12/17/2011 HENRY DO, DELORIS K 461.9 SINUSITIS ACUTE 12/17/2011 HENRY DO, DELORIS K 461.9 SINUSITIS ACUTE 12/17/2011 HENRY DO, DELORIS K 461.9 SINUSITIS ACUTE 12/17/2011 BRADLEY RAUSCH APRN 461.9 SINUSITIS ACUTE 12/17/2011 CHAUNCEY EDMOND APRN A 461.9 SINUSITIS ACUTE 06/16/2012 491.9 BRONCHITIS, CHRONIC UNSPEC 06/16/2012 491.9 BRONCHITIS, CHRONIC UNSPEC 06/16/2012 HENRY DO, DELORIS K 491.9 BRONCHITIS, CHRONIC UNSPEC 06/16/2012 HENRY DO, DELORIS K 491.9 BRONCHITIS, CHRONIC UNSPEC 06/16/2012 HENRY DO, DELORIS K 491.9 BRONCHITIS, CHRONIC UNSPEC 06/16/2012 BRADLEY RAUSCH APRN 491.9 BRONCHITIS, CHRONIC UNSPEC 06/16/2012 CHAUNCEY EDMOND APRN A 491.9 BRONCHITIS, CHRONIC UNSPEC 07/10/2012 V72.41 TEST NEGATIVE RESULT 07/10/2012 HENRY DO, DELORIS K V72.41 TEST NEGATIVE RESULT 07/10/2012 HENRY DO, DELORIS K V72.41 TEST NEGATIVE RESULT 07/10/2012 HENRY DO, DELORIS K V72.41 TEST NEGATIVE RESULT 07/10/2012 BRADLEY RAUSCH APRN R V72.41 TEST NEGATIVE RESULT 07/10/2012 CHAUNCEY EDMOND APRN A V72.41 TEST NEGATIVE RESULT 09/11/2012 HENRY DO, DELORIS K 465.9 UPPER RESPIRATORY INFECTION 09/11/2012 HENRY DO, DELORIS K 465.9 UPPER RESPIRATORY INFECTION 09/11/2012 HENRY DO, DELORIS K 465.9 UPPER RESPIRATORY INFECTION 09/11/2012 BRADLEY RAUSCH APRN R 465.9 UPPER RESPIRATORY INFECTION 09/11/2012 CHAUNCEY EDMOND APRN A 465.9 UPPER RESPIRATORY INFECTION 09/16/2012 CARL CUELLAR DELORIS K 305.1 TOBACCO ABUSE 09/16/2012 CARL CUELLAR DELORIS K V26.49 OTHER PROCREATIVE MANAGEMENT COUNSELING AND ADVICE 09/16/2012 HENRY HARIS CUELLARA K V76.10 BREAST CANCER SCREENING 09/16/2012 CARL CUELLAR DELORIS K 305.1 TOBACCO ABUSE 09/16/2012 CARL CUELLAR DELORIS K V26.49 OTHER PROCREATIVE MANAGEMENT COUNSELING AND ADVICE 09/16/2012 HENRY DO DELORIS K V76.10 BREAST CANCER SCREENING 09/16/2012 CARL CUELLAR DELORIS K 305.1 TOBACCO ABUSE 09/16/2012 HENRY DELORIS K V26.49 OTHER PROCREATIVE MANAGEMENT COUNSELING AND ADVICE 09/16/2012 HARIS HENRY DOA K V76.10 BREAST CANCER SCREENING 09/16/2012 BRADLEY RAUSCH APRN R 305.1 TOBACCO ABUSE 09/16/2012 BRADLEY RAUSCH APRN R V26.49 OTHER PROCREATIVE MANAGEMENT COUNSELING AND ADVICE 09/16/2012 BRADLEY RAUSHC APRN R V76.10 BREAST CANCER SCREENING 09/16/2012 CHAUNCEY EDMOND APRN A 305.1 TOBACCO ABUSE 09/16/2012 CHAUNCEY EDMOND APRN A V26.49 OTHER PROCREATIVE MANAGEMENT COUNSELING AND ADVICE 09/16/2012 CHAUNCEY EDMOND APRN A V76.10 BREAST CANCER SCREENING 02/09/2013 HARIS HENRY DOA K 701.9 SKIN TAG 02/09/2013 BRADLEY RAUSCH APRN R 701.9 SKIN TAG 02/09/2013 CHAUNCEY EDMOND APRN A 701.9 SKIN TAG 01/18/2014 HARIS HENRY DOA K 692.2 CONTACT DERMATITIS AND OTHER ECZEMA DUE TO SOLVENTS 01/18/2014 CARL CUELLAR DELORIS K 784.0 HEADACHE 01/18/2014 BRADLEY RAUSCH APRN R 692.2 CONTACT DERMATITIS AND OTHER ECZEMA DUE TO SOLVENTS 01/18/2014 BRADLEY RAUSCH APRN R 784.0 HEADACHE 01/18/2014 CHAUNCEY EDMOND APRN A 692.2 CONTACT DERMATITIS AND OTHER ECZEMA DUE TO SOLVENTS 01/18/2014 CHAUNCEY EDMOND APRN A 784.0 HEADACHE 04/23/2014 BRADLEY RAUSCH APRN 477.9 ALLERGIC RHINITIS CAUSE UNSPECIFIED 04/23/2014 CHAUNCEY EDMOND APRN A 477.9 ALLERGIC RHINITIS CAUSE UNSPECIFIED 10/20/2014 CHAUNCEY EDMOND APRN A 626.4 IRREGULAR MENSTRUAL CYCLE 10/20/2014 CHAUNCEY EDMOND APRN V25.42 CONTRACEPTION SURVEILLANCE (IUD) Procedures Code [place] [address] THERAPUTIC INJ SQ/IM 06/16/2012 J2930 SOLUMEDROL INJ 06/16/2012 41354 ROUTINE VENIPUNCTURE 09/11/2012 55409 URINE TEST (IN- HOUSE) 09/11/2012 98343 HCG QUALITATIVE 09/11/2012 67125 URINE TEST (IN- HOUSE) 09/30/2012 66693 THERAPUTIC INJ SQ/IM 01/18/2014 J2930 SOLUMEDROL INJ 01/18/2014 04956 GC/CHLAM PROBE (STATE) 10/20/2014 29196 TRICHOMONAS (IN-HOUSE) 10/20/2014 Results Test Result Range CBC With Differential/Platelet - 02/25/17 13:05 WBC 5.8 x10E3/uL 3.4-10.8 RBC 4.29 x10E6/uL 3.77-5.28 Hemoglobin 12.5 g/dL 11.1-15.9 Hematocrit 38.5 % 34.0-46.6 MCV 90 fL 79-97 MCH 29.1 pg 26.6-33.0 MCHC 32.5 g/dL 31.5-35.7 RDW 14.9 % 12.3-15.4 Platelets 379 x10E3/uL 150-379 Neutrophils 57 % Lymphs 30 % Monocytes 7 % Eos 4 % Basos 2 % Neutrophils (Absolute) 3.3 x10E3/uL 1.4-7.0 Lymphs (Absolute) 1.7 x10E3/uL 0.7-3.1 Monocytes(Absolute) 0.4 x10E3/uL 0.1-0.9 Eos (Absolute) 0.2 x10E3/uL 0.0-0.4 Baso (Absolute) 0.1 x10E3/uL 0.0-0.2 Immature Granulocytes 0 % Immature Grans (Abs) 0.0 x10E3/uL 0.0-0.1 Comp. Metabolic Panel (14) - 02/25/17 13:05 Glucose, Serum 103 mg/dL 65-99 BUN 6 mg/dL 6-24 Creatinine, Serum 0.72 mg/dL 0.57-1.00 eGFR If NonAfricn Am 102 mL/min/1.73 >59 eGFR If Africn Am 118 mL/min/1.73 >59 BUN/Creatinine Ratio 8 9-23 Sodium, Serum 141 mmol/L 134-144 Potassium, Serum 4.2 mmol/L 3.5-5.2 Chloride, Serum 102 mmol/L 96-106 Carbon Dioxide, Total 24 mmol/L 18-29 Calcium, Serum 9.3 mg/dL 8.7-10.2 Protein, Total, Serum 6.5 g/dL 6.0-8.5 Albumin, Serum 4.1 g/dL 3.5-5.5 Globulin, Total 2.4 g/dL 1.5-4.5 A/G Ratio 1.7 1.2-2.2 Bilirubin, Total 0.3 mg/dL 0.0-1.2 Alkaline Phosphatase, S 81 IU/L 39-117 AST (SGOT) 15 IU/L 0-40 ALT (SGPT) 8 IU/L 0-32 TSH - 02/25/17 13:05 TSH 0.746 uIU/mL 0.450-4.500 A1C - 07/11/17 11:05 HEMOGLOBIN A1c 4.9 % of total Hgb <5.7 SUREPATH PAP AND HPV mRNA E6/E7 - 07/11/17 11:17 CLINICAL INFORMATION: NR LMP: 04/21/17 NRG PREV. PAP: 2011 NRG PREV. BX: NO NRG SOURCE: Cervix NR STATEMENT OF ADEQUACY: NR INTERPRETATION/RESULT: NR BUTCHER SUPERVISOR: NRG HPV mRNA E6/E7, SUREPATH VIAL Not Detected NOT DETECTED INFECTION: NR LIPID PANEL - 06/11/18 09:02 CHOLESTEROL, TOTAL 196 mg/dL <200 HDL CHOLESTEROL 61 mg/dL >50 TRIGLYCERIDES 60 mg/dL <150 LDL-CHOLESTEROL 120 mg/dL (calc) NRG CHOL/HDLC RATIO 3.2 (calc) <5.0 NON HDL CHOLESTEROL 135 mg/dL (calc) <130 CMP - 06/11/18 09:02 GLUCOSE 93 mg/dL 65-99 UREA NITROGEN (BUN) 7 mg/dL 7-25 CREATININE 0.64 mg/dL 0.50-1.10 eGFR NON-AFR. [place] 108 mL/min/1.73m2 > OR=60 eGFR 125 mL/min/1.73m2 > OR=60 BUN/CREATININE RATIO NOT APPLICABLE (calc) 6-22 SODIUM 136 mmol/L 135-146 POTASSIUM 3.7 mmol/L 3.5-5.3 CHLORIDE 97 mmol/L 98-110 CARBON DIOXIDE 32 mmol/L 20-32 CALCIUM 9.7 mg/dL 8.6-10.2 PROTEIN, TOTAL 6.9 g/dL 6.1-8.1 ALBUMIN 4.4 g/dL 3.6-5.1 GLOBULIN 2.5 g/dL (calc) 1.9-3.7 ALBUMIN/GLOBULIN RATIO 1.8 (calc) 1.0-2.5 BILIRUBIN, TOTAL 0.5 mg/dL 0.2-1.2 ALKALINE PHOSPHATASE 80 U/L 33-115 AST 13 U/L 10-35 ALT 12 U/L 6-29 CBC - 06/11/18 09:02 WHITE BLOOD CELL COUNT 6.0 Thousand/uL 3.8-10.8 RED BLOOD CELL COUNT 4.60 Million/uL 3.80-5.10 HEMOGLOBIN 14.0 g/dL 11.7-15.5 HEMATOCRIT 40.8 % 35.0-45.0 MCV 88.7 fL 80.0-100.0 MCH 30.4 pg 27.0-33.0 MCHC 34.3 g/dL 32.0-36.0 RDW 12.2 % 11.0-15.0 PLATELET COUNT 408 Thousand/uL 140-400 MPV 9.5 fL 7.5-12.5 ABSOLUTE NEUTROPHILS 3120 cells/uL 3027-0576 ABSOLUTE LYMPHOCYTES 2082 cells/uL 850-3900 ABSOLUTE MONOCYTES 426 cells/uL 200-950 ABSOLUTE EOSINOPHILS 300 cells/uL 15-500 ABSOLUTE BASOPHILS 72 cells/uL 0-200 NEUTROPHILS 52 % NRG LYMPHOCYTES 34.7 % NRG MONOCYTES 7.1 % NRG EOSINOPHILS 5.0 % NRG BASOPHILS 1.2 % NRG TSH - 06/11/18 09:02 TSH 1.22 mIU/L NRG A1C - 06/11/18 09:02 HEMOGLOBIN A1c 5.1 % of total Hgb <5.7 Encounters ACCT No. Visit Date/Time Discharge Status Pt. Type Provider Facility Loc./Unit Complaint [id number] 10/20/2014 16:39:00 10/20/2014 23:59:59 CLS Outpatient GEOVANI EDMOND APRNRILEY [place] [id number] 04/23/2014 11:47:00 04/23/2014 23:59:59 CLS Outpatient BRADLEY RAUSCH APRN [id number] 01/18/2014 12:09:00 01/18/2014 23:59:59 CLS Outpatient DELORIS HENRY DO [id number] 09/30/2012 07:58:00 09/30/2012 23:59:59 CLS Outpatient DELORIS HENRY DO [id number] 09/16/2012 08:58:00 09/16/2012 23:59:59 CLS Outpatient DELORIS HENRY DO [id number] 07/10/2012 16:49:00 07/10/2012 23:59:59 CLS Outpatient [id number] 06/16/2012 15:27:00 06/16/2012 23:59:59 CLS Outpatient [id number] 07/11/2018 11:00:00 07/11/2018 23:59:59 CLS Outpatient [facility] J[facility]NSON [facility] [id number] 06/11/2018 08:00:00 Document Registration [id number] 07/11/2017 10:00:00 Document Registration [id number] 02/26/2017 09:09:00 Document Registration
--- OUTSIDE RECORDS SUMMARY | 2018-10-14 07:01 | XMS REPORT ---
Author Author RACHEL ORTIZ Organization [facility] Address [address] [place] [address] Care Team Providers Care Business Machine Operator Name Role Phone RACHEL ORTIZ Unavailable PROBLEMS Type Condition ICD9-CM Code MHC91-NV Code Onset Dates Condition Status SNOMED Code Problem Missed period N92.6 Active 20452773 Problem Tobacco abuse counseling Z71.6 Active 818406808 Problem Hypercholesteremia E78.00 Active 52934898 Problem Tobacco abuse Z72.0 Active 823578774 Problem Essential hypertension I10 Active 89705699 ALLERGIES No Known Allergies ENCOUNTERS Encounter Location Date Diagnosis [facility] [address] [address] November, [facility] [address] [address] Sep, Essential hypertension I10 [facility] [address] [address] Jul, [facility] [address] [address] Jul, Encounter for well woman exam with routine gynecological exam Z01.419 ; Screen for STD (sexually transmitted disease) Z11.3 ; Screening breast examination Z12.31 ; Tobacco abuse Z72.0 ; Tobacco abuse counseling Z71.6 ; Essential hypertension I10 and Missed period N92.6 [facility] [address] [address] May, [facility] [address] [address] 08 May, 2017 Encounter for immunization Z23 [facility] [address] [address] 15 Mar, 2017 Encounter to establish care with new doctor Z76.89 ; Essential hypertension I10 ; Tobacco abuse Z72.0 and Tobacco abuse counseling Z71.6 [facility] [address] [address] 13 Mar, 2017 [facility] [id number] [place] [address] Feb, Localized edema R60.0 ; Tinea pedis of both feet B35.3 and Hypertension, benign I10 [facility] [address] [address] Sep, Bronchitis J40 [facility] [address] [address] Apr, Encounter for immunization Z23 [facility] [address] [address] 07 Mar, 2016 Frequent urination R35.0 ; Hot flashes R23.2 ; Cough R05 and Tobacco dependence F17.200 [facility] [address] [id number] Feb, Dental examination Z01.20 [facility] [address] [address] November, Plant allergic contact dermatitis L23.7 [facility] [address] [id number] Jul, Encounter for dental examination Z01.20 and Dental caries K02.9 [facility] [id number] [place] [id number] May, Dental examination Z01.20 [facility] [address] [id number] Mar, Dental examination V72.2 [facility] [address] [id number] November, Dental examination V72.2 [facility] [address] [address] 14 Oct, 2014 [facility] [place] [facility] [address] [id number] [place] [address] Oct, [facility] [place] [facility] [address] [id number] [place] [address] Apr, [facility] [place] [facility] [address] [id number] [place] [address] Apr, [facility] [place] [facility] [address] [id number] [place] [address] Jan, [facility] [place] [facility] [address] [id number] [place] [address] Jan, [facility] [place] [facility] [address] [id number] [place] [address] Feb, [facility] [place] [facility] [address] [id number] [place] [address] Oct, [facility] [place] [facility] [address] [id number] [place] [address] Sep, [facility] [place] [facility] [address] [id number] [place] [address] Sep, [facility] [place] [facility] [address] [id number] [place] [address] Sep, [facility] [place] [facility] [address] [id number] [place] [address] Aug, [facility] [place] [facility] [address] [id number] [place] [address] Jul, [facility] [place] [facility] [address] [id number] [place] [address] Jun, [facility] [place] [facility] [address] [id number] [place] [address] Jun, [facility] [place] [facility] [address] [id number] [place] [address] Apr, [facility] [place] [facility] [address] [id number] [place] [address] Apr, [facility] [place] [facility] [address] [id number] [place] [address] Jan, [facility] [place] [facility] [address] [id number] [place] [address] Dec, [facility] [place] [facility] [address] [id number] [place] [address] Dec, [facility] [place] [facility] [address] [id number] [place] [address] Dec, [facility] [place] [facility] [address] [id number] [place] [address] Dec, [facility] [place] [facility] [address] [id number] [place] [address] Dec, [facility] [place] [facility] [address] [id number] [place] [address] Dec, [facility] [address] [id number] [place] [address] Dec, [facility] [place] [facility] [address] [id number] [place] [address] Dec, [facility] [address] [id number] [place] [address] Dec, [facility] [place] [facility] [address] [id number] [place] [address] November, [facility] [place] [facility] [address] [id number] [place] [address] November, [facility] [place] [facility] [address] [id number] [place] [address] November, [facility] [place] [facility] [address] [id number] [place] [address] November, [facility] [place] [facility] [address] [id number] [place] [address] November, [facility] [place] [facility] [address] [id number] [place] [address] November, [facility] [place] [facility] [address] [id number] [place] [address] November, [facility] [place] [facility] [address] [id number] [place] [address] November, [facility] [place] [facility] [address] [id number] [place] [address] November, [facility] [place] [facility] [address] [id number] [place] [address] November, [facility] [place] [facility] [address] [id number] [place] [address] November, [facility] [place] [facility] [address] [id number] [place] [address] Sep, [facility] [place] [facility] [address] [id number] [place] [address] Sep, [facility] [place] [facility] [address] [id number] [place] [address] Sep, [facility] [place] [facility] [address] [id number] [place] [address] Sep, [facility] [place] [facility] [address] [id number] [place] [address] Aug, [facility] [place] [facility] [address] [id number] [place] [address] Aug, [facility] [place] [facility] [address] [id number] [place] [address] Aug, [facility] [place] [facility] [address] [id number] [place] [address] Aug, [facility] [place] [facility] [address] [id number] [place] [address] Aug, [facility] [place] [facility] [address] [facility] [id number] [place] [address] Aug, [facility] [address] [facility] [id number], [place] [address] Aug, [facility] [address] [facility] [id number], [place] [address] May, [place] [address] [facility] [id number], [place] [address] May, [facility] [address] [facility] [id number], [place] [address] May, IMMUNIZATIONS No Known Immunizations SOCIAL HISTORY Never Assessed REASON FOR VISIT edema, PT woke up with it in her hands and feet- Mago DIXON PLAN OF CARE VITAL SIGNS Height 67 in 2017-02-25 Weight 199.4 lbs 2017-02-25 Temperature 98.8 degrees Fahrenheit 2017-02-25 Heart Rate 64 bpm 2017-02-25 Respiratory Rate 20 2017-02-25 BMI 31.23 kg/m2 2017-02-25 Blood pressure systolic 132 mmHg 2017-02-25 Blood pressure diastolic 88 mmHg 2017-02-25 MEDICATIONS Medication Instructions Dosage Frequency Start Date End Date Duration Status Rexulti 1 MG Orally Once a day 1 tablet 24h Active Hydrochlorothiazide 25 MG Orally Once a day, voucher 1 tablet in the morning Feb, Active HydrOXYzine HCl Active BuSpar Active Cymbalta 60 MG Orally Twice a day 1 capsule 12h Jan, Active Terbinafine HCl 1 % Externally Twice a day 1 application to affected area 12h Feb, Active RESULTS Name Result Date Reference Range TSH 2017-02-25 TSH 0.746 0.450-4.500 CBC 2017-02-25 WBC 5.8 3.4-10.8 RBC 4.29 3.77-5.28 Hemoglobin 12.5 11.1-15.9 Hematocrit 38.5 34.0-46.6 MCV 90 79-97 MCH 29.1 26.6-33.0 MCHC 32.5 31.5-35.7 RDW 14.9 12.3-15.4 Platelets 379 150-379 Neutrophils 57 Lymphs 30 Monocytes 7 Eos 4 Basos 2 Neutrophils (Absolute) 3.3 1.4-7.0 Lymphs (Absolute) 1.7 0.7-3.1 Monocytes(Absolute) 0.4 0.1-0.9 Eos (Absolute) 0.2 0.0-0.4 Baso (Absolute) 0.1 0.0-0.2 Immature Granulocytes 0 Immature Grans (Abs) 0.0 0.0-0.1 CMP 2017-02-25 Glucose, Serum 103 65-99 BUN 6 6-24 Creatinine, Serum 0.72 0.57-1.00 eGFR If NonAfricn Am 102 >59 eGFR If Africn Am 118 >59 BUN/Creatinine Ratio 8 9-23 Sodium, Serum 141 134-144 Potassium, Serum 4.2 3.5-5.2 Chloride, Serum 102 96-106 Carbon Dioxide, Total 24 18-29 Calcium, Serum 9.3 8.7-10.2 Protein, Total, Serum 6.5 6.0-8.5 Albumin, Serum 4.1 3.5-5.5 Globulin, Total 2.4 1.5-4.5 A/G Ratio 1.7 1.2-2.2 Bilirubin, Total 0.3 0.0-1.2 Alkaline Phosphatase, S 81 39-117 AST (SGOT) 15 0-40 ALT (SGPT) 8 0-32 PROCEDURES Procedure Date Ordered Result Body Site ASSAY THYROID STIM HORMONE Feb 25, 2017 COMPREHEN METABOLIC PANEL Feb 25, 2017 COMPLETE CBC W/AUTO DIFF WBC Feb 25, 2017 VENIPUNCT, ROUTINE* Feb 25, 2017 INSTRUCTIONS MEDICATIONS ADMINISTERED No Known Medications MEDICAL (GENERAL) HISTORY Type Description Date Medical History Incomplete spontaneous without mention of complication Medical History Mucous polyp of cervix Medical History anxiety Medical History depression Medical History borderline personality disorder Surgical History Waucoma teeth removed Surgical History section Hospitalization History Child
--- OUTSIDE RECORDS SUMMARY | 2018-10-14 07:01 | XMS REPORT ---
Author Author ABI MCNEIL Organization [facility] Address [address] [place] [address] Care Team Providers Care Sleeping Car Porter Name Role Phone ABI MCNEIL Unavailable PROBLEMS Type Condition ICD9-CM Code BED17-HL Code Onset Dates Condition Status SNOMED Code Problem Tobacco abuse counseling Z71.6 Active 271868385 Problem Tobacco abuse Z72.0 Active 675600359 Problem Essential hypertension I10 Active 60937531 ALLERGIES No Known Allergies SOCIAL HISTORY Never Assessed PLAN OF CARE Activity Details Follow Up prn Reason: VITAL SIGNS Height 67 in 2016-09-06 Weight 198.4 lbs 2016-09-06 Temperature 97.2 degrees Fahrenheit 2016-09-06 Heart Rate 76 bpm 2016-09-06 Respiratory Rate 18 2016-09-06 Oximetry 97 % 2016-09-06 BMI 31.07 kg/m2 2016-09-06 Blood pressure systolic 116 mmHg 2016-09-06 Blood pressure diastolic 82 mmHg 2016-09-06 MEDICATIONS Medication Instructions Dosage Frequency Start Date End Date Duration Status PredniSONE 20 MG Orally Once a day 2 tablet 24h Sep, Sep, 5 days Active Azithromycin 250 MG Orally Once a day 2 tablets on the first day, then 1 tablet daily for 4 days 24h Sep, Sep, 5 day(s) Active Cymbalta 60 MG Orally Twice a day 1 capsule 12h Jan, Active ProAir HFA 108 (90 Base) MCG/ACT Inhalation every 4 hrs 2 puffs as needed 4h Sep, 5 days Active BuSpar Active HydrOXYzine HCl Active RESULTS No Results PROCEDURES Procedure Date Ordered Result Body Site ALBUTEROL UNIT DOSE FORM INHALED 2016-09-06 N/A MEASURE BLOOD OXYGEN LEVEL September 06, 2016 ALBUTEROL INHAL UNIT DOSE 1 MG September 06, 2016 IMMUNIZATIONS No Known Immunizations MEDICAL (GENERAL) HISTORY Type Description Date Medical History 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
[2018-10-14] MEDS ORDERED: LACTATED RINGERS 1,000 ML IV ONE (07:02)
[2018-10-14] MEDS ORDERED: LACTATED RINGERS 1,000 ML IV STA (07:14)
[2018-10-14] MEDS ORDERED: HURRICAINE EXT TUBE (BENZOCAINE) XX PRN (07:15)
[2018-10-14] MEDS ORDERED: MIDAZOLAM 2 MG/2 ML (VERSED) VIAL ONE (07:16)
[2018-10-14] MEDS ORDERED: PROPOFOL INJECTION 50 ML IV ONE ×2 (07:16→08:12)
[2018-10-14 07:17] VITALS: BP 113/77
[2018-10-14] MEDS ORDERED: HURRICAINE EXT TUBE (BENZOCAINE) ONE (08:32)
--- NOTE | 2018-10-14 08:33 | Progress Note-Post Operative ---
Post-Operative Progess Note Surgeon (s)/Metalizing Machine Operator (s) Surgeon CHEN AMEZCUA DO Metalizing Machine Operator: na Pre-Operative Diagnosis gerd, chronic diarrhea, change in bowels Post-Operative Diagnosis hiatal hernia, normal colon Procedure & Operative Findings Date of Procedure 10/14/18 Procedure Performed/Findings egd c biopsies, colonoscopy random cold biopsies Anesthesia Type per riddler operator Estimated Blood Loss Estimated blood loss (mL): scant Specimens/Packing Specimens Removed antrum, ge, random colon CHEN AMEZCUA DO Oct 14, 2018 08:33
--- NOTE | 2018-10-14 08:34 | Discharge Inst-Simple/Standard ---
Discharge Inst-Standard Patient Instructions/Follow Up Plan of Care/Instructions/FU: 2 weeks Miriam Activity as Tolerated: Yes Discharge Diet: Regular Diet CHEN AMEZCUA DO Oct 14, 2018 08:34
[2018-10-14 08:50] VITALS: BP 99/66
[2018-10-14 09:20] VITALS: BP 101/67
[2018-10-14 09:40] VITALS: BP 101/67
--- NOTE | 2018-10-14 11:20 | Anesthesia-General Post-Op ---
MAC Patient Condition Mental Status/LOC: Same as Preop Cardiovascular: Satisfactory Nausea/Vomiting: Absent Respiratory: Satisfactory Pain: Controlled Complications: Absent Post Op Complications Complications None Follow Up Care/Instructions Patient Instructions None needed. Anesthesiology Discharge Order Discharge Order Patient is doing well, no complaints, stable vital signs, no apparent adverse anesthesia problems. No complications reported per nursing. CHELY SANTIAGO CRNA Oct 14, 2018 11:20
--- NOTE | 2018-10-14 11:41 | OPERATIVE REPORT ---
DATE OF SERVICE: 10/14/2018 PREOPERATIVE DIAGNOSIS: Gastroesophageal reflux disease, chronic diarrhea, change in stools. POSTOPERATIVE DIAGNOSES: Hiatal hernia, normal colon. PROCEDURE: EGD with biopsies and colonoscopy with random cold biopsies. SURGEON: Chen Pineda DO ANESTHESIA: Per FRUIT GRADING SUPERVISOR. ESTIMATED BLOOD LOSS: Scant. COMPLICATIONS: None. INDICATIONS: The patient is a 47-year-old female who has gastroesophageal reflux disease and chronic diarrhea and had some change in stools. She understands risks and benefits of procedures and wished to proceed with procedures. Consent was signed on the chart. DESCRIPTION OF PROCEDURE: The patient was taken to the endoscopy suite, placed in left lateral recumbent position. Timeout was performed. Scope was inserted in mouth, down the esophagus, stomach and into the duodenum without difficulty. There are no polyps, masses or ulcerations of the duodenum. Scope was slowly retracted back into the stomach where it was further insufflated. No polyps, masses or ulcerations. Biopsy of the antrum was obtained. Scope was retroflexed noting a small hiatal hernia, no other pathology noted. Scope was returned to its normal position, slowly withdrawn to the distal esophagus, biopsy of the GE junction was obtained. There are no polyps, masses or ulcerations. Scope was slowly retracted back until completely removed. Digital rectal exam was performed. There were no palpable polyps, masses or ulcerations. Scope was inserted in the rectum, advanced all the way to the cecum with minimal difficulty. Prep was adequate. Scope was then slowly retracted back. There were no polyps, masses or ulcerations in the cecum, ascending, transverse, descending and sigmoid colon. As the scope was being retracted, random cold biopsies were obtained. Once in the rectum, scope was retroflexed noting no other pathology. Scope returned to its normal position, slowly withdrawn until completely removed. The patient tolerated procedure well without any complications. She was taken to recovery room in stable condition. RECOMMENDATIONS: The patient to continue on Nexium at this time. She will follow up in 2 weeks to discuss pathology results and may be any changes, would consider working out the gallbladder. The patient will need a repeat colonoscopy in 10 years unless family history of colon cancer or any change which would then be 5 years. If any change before that be seen at that time. Job ID: [id number] DocumentID: [id number] Dictated Date: 10/14/2018 08:37:24 Records Management Manager Date: 10/14/2018 11:40:12 Dictated By: CHEN PINEDA DO
== END 2018-10-14 09:45 | disposition home or self-care (01) ==
LOC: ENDO 06:55
PROVIDERS: ATTEND Surgery
DX: K52.9 Noninfective gastroenteritis and colitis, unspecified (principal); K63.89 Other specified diseases of intestine; K21.9 Gastro-esophageal reflux disease without esophagitis; K44.9 Diaphragmatic hernia without obstruction or gangrene; G47.33 Obstructive sleep apnea (adult) (pediatric); F32.9 Major depressive disorder, single episode, unspecified; F17.210 Nicotine dependence, cigarettes, uncomplicated; Z79.899 Other long term (current) drug therapy
CPT/HCPCS: 84703; 88305

== ENCOUNTER → 2018-11-05 | Outpatient (CLI) | payer OTHER ==
--- NOTE | 2018-11-05 08:54 | Diagnostic Imaging Report ---
PROCEDURE: US Gallbladder. TECHNIQUE: Multiple real-time grayscale images were obtained over the right upper quadrant in various projections. INDICATION: Chronic diarrhea. FINDINGS: The liver is normal in size and without focal lesions. There is no intrahepatic or extrahepatic biliary ductal dilatation. The common bile duct measures less than 3 mm. There is no cholelithiasis, gallbladder wall thickening, or pericholecystic fluid. The right kidney is normal in appearance. There is no ascites. IMPRESSION: Essentially unremarkable right upper quadrant ultrasound. Dictated by: Dictated on workstation # [id number]
== END ==
LOC: RAD 07:15
PROVIDERS: ATTEND Surgery
DX: K52.9 Noninfective gastroenteritis and colitis, unspecified (principal)
CPT/HCPCS: 76705

== ENCOUNTER → 2018-11-21 | Outpatient (CLI) | payer OTHER ==
[~2018-11-21] MED LIST changes: +CATHETER FLUSH 10 ML SYR IV PRN
--- NOTE | 2018-11-21 12:10 | Diagnostic Imaging Report ---
INDICATION: Chronic diarrhea. TECHNIQUE: Patient was administered 5.3 mCi of technetium-99m Choletec intravenously, and imaging over the abdomen was performed. At 60 minutes, patient ingested one can of Ensure, and gallbladder ejection fraction was calculated. FINDINGS: There is homogeneous uptake of activity by the liver. There is prompt excretion of activity into the common duct, and gallbladder appeared normal. Passage of activity into the small bowel is seen. Gallbladder ejection fraction is normal at 48%. IMPRESSION: Normal HIDA scan and gallbladder ejection fraction. Dictated by: Dictated on workstation # [id number]
== END ==
LOC: CARD 09:17
PROVIDERS: ATTEND Surgery
DX: K52.9 Noninfective gastroenteritis and colitis, unspecified (principal)
CPT/HCPCS: 78227